=== PATIENT | male | born 1955 | race Caucasian/White ===

== ENCOUNTER 2022-12-03 07:28 | Outpatient (CLI) | payer MEDICARE, SELFPAY ==
[2022-12-03 10:09] LABS: Albumin* 3.9 g/dL (3.3-5.0); Chloride* 107 mmol/L (96-114); Potassium* 4.2 mmol/L (3.6-5.1); Sodium* 139 mmol/L (135-149)
[2022-12-03 10:11] LABS: Carbon Dioxide* 25 mmol/L (20-32); Cholesterol* 93 mg/dL (90-199); Creatinine* 0.7 mg/dL (0.5-1.5); Estimated Glomerular Filt Rate 102 ml/min
[2022-12-03 10:12] LABS: Alanine Aminotransferase* 26 U/L (4-50); Alkaline Phosphatase* 90 U/L (40-150); Aspartate Amino Transferase* 23 U/L (12-35); Bilirubin Total* 0.9 mg/dL (0.1-1.5); Blood Urea Nitrogen* 12 mg/dL (7-30); Glucose* 145 mg/dL (60-115); HDL Cholesterol* 30 mg/dL (>=40); LDL Cholesterol Calculated 50 mg/dL (<100); Total Protein* 6.3 g/dL (6.0-8.3); Triglycerides* 66 mg/dL (40-149)
[2022-12-03 11:58] LABS: Creatinine Urine 159.7 mg/dL
[2022-12-03 12:02] LABS: Microalbumin Creatinine Ratio 0 mg/g (0-30); Microalbumin Urine 1 mg/dL
== END 2022-12-03 07:29 | disposition home or self-care (01) ==
LOC: NFLDREF 07:28
PROVIDERS: PCP Internal Medicine; Visit Provider Internal Medicine
DX: E11.9 Type 2 diabetes mellitus without complications (principal); I10 Essential (primary) hypertension; E78.5 Hyperlipidemia, unspecified; E66.9 Obesity, unspecified; I48.91 Unspecified atrial fibrillation
CPT/HCPCS: 80053; 80061; 82043; 82570

== ENCOUNTER 2023-07-30 10:36 | Outpatient (CLI) | payer MEDICARE, SELFPAY ==
--- NOTE | 2023-07-30 11:50 | W.ANESCHARGE ---
Anesthesia Charges Start Date/Time Anesthesia Start Date: 07/30/23 Anesthesia Start Time: 11:50 Stop Date/Time Anesthesia Stop Date: 07/30/23 Anesthesia Stop Time: 12:29
--- NOTE | 2023-07-30 12:22 | W.ANESCHARGE ---
Anesthesia Charges Start Date/Time Anesthesia Start Date: 07/30/23 Anesthesia Start Time: 11:50 Stop Date/Time Anesthesia Stop Date: 07/30/23 Anesthesia Stop Time: 12:29
== END 2023-07-30 10:37 | disposition home or self-care (01) ==
LOC: OP CLINIC 10:37
PROVIDERS: PCP Internal Medicine; Visit Provider Surgery
DX: Z12.11 Encounter for screening for malignant neoplasm of colon (principal); K64.4 Residual hemorrhoidal skin tags; K57.30 Diverticulosis of large intestine without perforation or abscess without bleeding; Z86.010 Personal history of colon polyps
CPT/HCPCS: 00812; 45378; J2704

== ENCOUNTER 2023-08-30 07:30 | Outpatient (CLI) | payer MEDICARE, SELFPAY | END 2023-08-30 07:31 | disposition home or self-care (01) | LOC: NFLDREF 09-03 23:01 | PROVIDERS: PCP Internal Medicine; Referring Provider Internal Medicine; Visit Provider Internal Medicine | DX: E11.9 Type 2 diabetes mellitus without complications (principal); I10 Essential (primary) hypertension; E78.5 Hyperlipidemia, unspecified; E66.9 Obesity, unspecified; Z12.5 Encounter for screening for malignant neoplasm of prostate | CPT/HCPCS: 80053; 80061; 82043; 82570; 84153 ==

== ENCOUNTER 2023-11-11 06:58 | Outpatient (CLI) | payer MEDICARE, SELFPAY ==
--- OUTSIDE RECORDS SUMMARY | 2023-11-11 07:03 | XMS_ITS | Encounter Summary ---
Author Name Unknown Organization [facility] Address [address] [place] [address] Care Team Providers Care Soap Boiler Name Role Phone Unavailable Primary Care Provider Unavailabl e Reason for Referral * Outpatient (Routine) - Closed Specialty Diagnoses / Procedures Referred By Contac t Referred To Contact Diagnoses Hyperlipidemia Diabetes Mellitus Type 2 (HCC) Procedures Echo Transthoracic (TTE) Tone Lawson M.D. [address] [place] [address] [facility] Referral ID Status Reason Start Date Expiration Date Visits Re quested Visits Authorized [id number] Closed 11/17/2021 11/17/2022 1 1 ING CLERK Reason for Visit * Outpatient (Routine) - Closed Specialty Diagnoses / Procedures Referred By Mati perales Referred To Contact Diagnoses Hyperlipidemia Diabetes Mellitus Type 2 (HCC) Procedures Echo Transthoracic (TTE) Tone Lawson M.D. [address] [place] [address] [facility] Referral ID Status Reason Start Date Expiration Date Visits Re quested Visits Authorized [id number] Closed 11/17/2021 11/17/2022 1 1 Encounter Details Date Type Department Care Team (Latest Contact Info) Description 12/26/2022 9:42 AM ROUTING CLERK - 12/26/2022 11:59 PM ROUTING CLERK Hospital Encounter Department of Cardiovascular Diseases in [place], [place] [address] [place] [phone] [place] [address] Hyperlipidemia; Diabetes Mellitus Type 2 (HCC) Discharge Disposition: Home or Self Care Social History Tobacco Use Types Packs/Day Years Used Date Smoking Tobacco: Never Smokeless Tobacco: Never Alcohol Use Standard Drinks/Week Comments Not Currently 0 (1 standard drink = 0.6 oz pur e alcohol) Humiliation, Afraid, Rape, and Kick questionnair e Answer Date Recorded Within the last year, have y ou been afraid of your partner or ex-partner? No 11/17/2021 Within the last year, have y ou been humiliated or emotionally abused in other ways by your partner or ex-partner? No Within the last year, have y ou been kicked, hit, slapped, or otherwise physically hurt by your partner or ex-partner? No 11/17/2021 Within the last year, have y ou been raped or forced to have any kind of sexual activity by your partner or ex-partner? No 11/17/2021 Social Connection and Isolat ion Panel [NHANES] Answer Date Recorded In a typical week, how many times do you talk on the phone with family, friends, or neighbors? More than three times a week 11/17/2021 How often do you get togethe r with friends or relatives? Three times a week 11/17/2021 How often do you attend [facility] or uatsdin services? Never 11/17/2021 Do you belong to any clubs o r organizations such as rastafari groups, unions, fraternal or athletic groups, or school groups? No 11/17/2021 How often do you attend meet ings of the clubs or organizations you belong to? Never 11/17/2021 Are you , , di vorced, , never , or living with a partner? Never 11/17/2021 AUDIT-C Answer Date Recorded Q1: How often do you have a drink containing alc ohol? Never 11/17/2021 Average Number of Drinks Not on file 022 Frequency of Binge Drinking Not on file 10/22 Overall Financial Resource Strain (CARDIA) Answe r Date Recorded How hard is it for you to pa y for the very basics like food, housing, medical care, and heating? Not hard at all 11/17/2021 [facility] [place] of Occupat ional Health - Occupational Stress Questionnaire Answer Date Recorded Do you feel stress - tense, restless, nervous, or anxious, or unable to sleep at night because your mind is troubled all the time - these days? Not at all 11/17/2021 Exercise Vital Sign Answer Date Recorde d On average, how many days pe r week do you engage in moderate to strenuous exercise (like a brisk walk)? 0 days 11/17/2021 On average, how many minutes do you engage in exercise at this level? 0 min 11/17/2021 Hunger Vital Sign Answer Date Recorded Within the past 12 months, y ou worried that your food would run out before you got the money to buy more. Never true 11/17/19 Within the past 12 months, t he food you bought just didn't last and you didn't have money to get more. Never true 11/17/2021 PRAPARE - Transportation Answer Date Re corded In the past 12 months, has l ack of transportation kept you from medical appointments or from getting medications? No 10/22 In the past 12 months, has l ack of transportation kept you from meetings, work, or from getting things needed for daily living? No 11/17/2021 Housing Stability Vital Sign Answer Jayesh e Recorded In the last 12 months, was t here a time when you were not able to pay the mortgage or rent on time? No 11/17/2021 In the last 12 months, how many places have you lived? 1 11/17/2021 In the last 12 months, was t here a time when you did not have a steady place to sleep or slept in a prison (including now)? No 11/17/2021 Nutrition Answer Date Recorded Nutrition: EVOO Fat Source No 11/17 On average, how many serving s of fruits and vegetables do you eat per day (serving size is equal to 1 cup or approximately the size of a tennis ball)? 0-1 11/17/2021 Dental Answer Date Recorded Dental: Regular Dentist Yes 11/17/19 Employment Answer Date Recorded Employment status Retired 11/17/2021 Education Answer Date Recorded What is the highest level of school you have completed or the highest degree you have received? Bachelor's degree (e.g., BA, AB, BS) 08/24/2019 Sex and Gender Information Value Date Recorded Sex Assigned at Male 11/17/2021 12:19 PM ROUTING CLERK Gender Identity Male 11/17/2021 12:19 PM ROUTING CLERK Sexual Orientation Straight 11/17/2021 12 :19 PM ROUTING CLERK documented as of this encounter Medications at Time of Discharge Medication Sig Dispensed Refills Start Date End Date Accu-Chek Fastclix Lancet Drum use for testing 0 11/01/2021 Accu-Chek Guide test strips strips TEST TWICE DAILY NEEDED 0 11/02/2021 glipiZIDE (GLUCOTROL) 10 mg tablet 0 metFORMIN (GLUCOPHAGE) 1,000 mg tablet Take 1,000 mg by mouth 2 (two) times a day with meals. 0 metoprolol tartrate (LOPRESSOR) 25 mg tablet Take 25 mg by mouth 2 (two) times a day. 0 nitroglycerin (NITROSTAT) 0.[address] 0.3 mg under the tongue every 5 (five) minutes as needed for chest pain. 0 rivaroxaban (XARELTO) 20 mg tablet Take 20 mg by mouth daily. 0 semaglutide (RYBELSUS) 14 mg tablet tablet Take 14 mg by mouth daily. 0 12/05/2022 valsartan (DIOVAN) 160 mg tablet Take 160 mg by mouth daily. 0 06/14/2022 atorvastatin (LIPITOR) 80 mg tablet Take 80 mg by mouth daily. 0 12/27/2022 valsartan-hydroCHLOROthi azide (DIOVAN-HCT) 160-12.5 mg per tablet 0 10/07/202112/27 documented as of this encounter Plan of Treatment Not on file documented as of this encounter Procedures Procedure Name Priority Date/Time Associated Diagnosis Comments (TTE) 2D ECHO DOPPLER COLOR Routine 12/26/2022 10:33 AM ROUTING CLERK Hyperlipidemia Diabetes Mellitus Type 2 (HCC) documented in this encounter Results * (TTE) 2D ECHO DOPPLER COLOR (12/26/2022 10:33 AM ROUTING CLERK) Ejection Fraction 65 MC CV EIMS Sinus of Valsalva 38 MC CV EIMS Sinotubular Junction 29 MC CV EIMS LV End-Diastolic Diameter 53 MC CV EIMS LV End-Systolic Diameter 33 MC CV EIMS LV End-Diastolic Volume 95 MC CV EIMS LV End-Systolic Volume 31 MC CV EIMS MV E Velocity 0.6 MC CV EIMS MV A Velocity 0.7 MC CV EIMS MV E/A 0.86 MC CV EIMS MV e' Velocity Medial 0.08 MC CV EIMS MV e' Velocity Lateral 0.1 MC CV EIMS MV E/e' Medial 7.5 MC CV EIMS MV E/e' Lateral 6 MC CV EIMS Left ventricular stroke volume index 48 MC CV EIMS Cardiac Output 6.77 MC CV EIMS Cardiac Index 3.25 MC CV EIMS Tricuspid Annular S? 0.17 MC CV EIMS TR Vmax 2.5 MC CV EIMS RA Pressure 5 MC CV EIMS RV Systolic Pressure 30 MC CV EIMS Anatomical Region Laterality Modality Echocardiography 12/26/2022 9:46 AM ROUTING CLERK Impressions 12/26/2022 10:37 AM ROUTING CLERK Echocardiogram performed per left ventricular function protocol. Last full echocardiogram performed 11/16/2021. LEFT VENTRICLE:Normal left ventricular chamber size. Calculated 2-D linear left ventricular ejection fraction 65%. Left ventricular volumes were performed but not reported based on channeler's judgment. No regional wall motion abnormalities. Normal left ventricular diastolic function. RIGHT VENTRICLE:Normal right ventricular chamber size. Normal right ventricular function. Estimated right ventricular systolic pressure 30 mmHg (systolic blood pressure 156 mmHg). ATRIA:Normal left atrial size. Normal right atrial size. CARDIAC VALVES:Mildly thickened aortic valve. Trivial aortic valve regurgitation. Normal mitral valve. Trivial mitral valve regurgitation. Trivial pulmonary valve regurgitation. Normal tricuspid valve. Trivial tricuspid valve regurgitation. OTHER ECHO FINDINGS:Normal inferior vena cava size with normal inspiratory collapse (>50%). Normal sinus of Valsalva diameter of 38 mm. Upper limit of normal of the sinus of Valsalva for age, sex and BSA is 42 mm. No intracardiac mass or thrombus, but the left atrial appendage cannot be visualized adequately with transthoracic echo to exclude thrombus in this location. No ??pericardial effusion. For the complete report, see the Order-Level Documents. Narrative 12/26/2022 10:37 AM ROUTING CLERK For the complete report, see the Order-Level Documents. Hemodynamics Heart Rate: 66 BPM Blood Pressure: 156 / 92 mmHg ECG: Sinus rhythm Final Impressions 1. Normal left ventricular chamber size. Calculated ejection fraction 65%. No regional wall motion abnormalities. 2. Normal left ventricular diastolic function. 3. Normal right ventricular chamber size and systolic function. 4. Estimated right ventricular systolic pressure 30 mmHg (systolic blood pressure 156 mmHg). Could be underestimated due to faint tricuspid regurgitant signal. 5. No ??significant valvular heart disease. 6. Normal inferior vena cava size with normal inspiratory collapse (>50%). 7. No ??pericardial effusion. 8. Compared to the report of 11/16/2021 no significant change has occurred. Side by side comparison of images performed. Procedure Note Nella Domingo M.D. - 12/26/2022 For the complete report, see the Order-Level Documents. Hemodynamics Heart Rate: 66 BPM Blood Pressure: 156 / 92 mmHg ECG: Sinus rhythm Final Impressions 1. Normal left ventricular chamber size. Calculated ejection fraction 65%.No regional wall motion abnormalities. 2. Normal left ventricular diastolic function. 3. Normal right ventricular chamber size and systolic function. 4. Estimated right ventricular systolic pressure 30 mmHg (systolic bloodpressure 156 mmHg). Could be underestimated due to faint tricuspidregurgitant signal. 5. No significant valvular heart disease. 6. Normal inferior vena cava size with normal inspiratory collapse(>50%). 7. No pericardial effusion. 8. Compared to the report of 11/16/2021 no significant change hasoccurred. Side by side comparison of images performed. Findings Echocardiogram performed per left ventricular function protocol. Last fullechocardiogram performed 11/16/2021. LEFT VENTRICLE:Normal left ventricular chamber size. Calculated 2-D linearleft ventricular ejection fraction 65%. Left ventricular volumes wereperformed but not reported based on channeler's judgment. No regionalwall motion abnormalities. Normal left ventricular diastolic function. RIGHT VENTRICLE:Normal right ventricular chamber size. Normal rightventricular function. Estimated right ventricular systolic pressure 30mmHg (systolic blood pressure 156 mmHg). ATRIA:Normal left atrial size. Normal right atrial size. CARDIAC VALVES:Mildly thickened aortic valve. Trivial aortic valveregurgitation. Normal mitral valve. Trivial mitral valve regurgitation.Trivial pulmonary valve regurgitation. Normal tricuspid valve. Trivialtricuspid valve regurgitation. OTHER ECHO FINDINGS:Normal inferior vena cava size with normal inspiratorycollapse (>50%). Normal sinus of Valsalva diameter of 38 mm. Upper limitof normal of the sinus of Valsalva for age, sex and BSA is 42 mm. Nointracardiac mass or thrombus, but the left atrial appendage cannot bevisualized adequately with transthoracic echo to exclude thrombus in thislocation. No pericardial effusion. For the complete report, see the Order-Level Documents. Tone Lawson M.D. CV ECHO PROCEDURES documented in this encounter Visit Diagnoses Diagnosis Hyperlipidemia Diabetes Mellitus Type 2 (HCC) documented in this encounter
--- OUTSIDE RECORDS SUMMARY | 2023-11-11 07:03 | XMS_ITS | Encounter Summary ---
Author Name Unknown Organization [facility] Address [address] [place] [address] Care Team Providers Care Enamel Applier Name Role Phone Unavailable Primary Care Provider Unavailabl e Encounter Details Date Type Department Care Team (Latest Contact Info) Description 12/26/2022 8:33 AM SENIOR TECHNICAL PROJECT MANAGER - 12/26/2022 9:41 AM [facility] Hospital Encounter Department of Laboratory Medicine and Pathology, [facility] in [place], [place] [address] [place] [address] Tone Lawson M.D. [address] [place] [address] Hyperlipidemia; Diabetes Mellitus Type 2 (HCC) Discharge [...] week 11/17/2021 How often do you attend chur ch or baptist services? Never 11/17/2021 Do you belong to any clubs o r organizations such as buddhist groups, unions, fraternal or athletic groups, or [...] and heating? Not hard at all 11/17/2021 [facility] of Occupat ional Health - Occupational Stress [...] money to buy more. Never true 11/17/19 22 Within the past 12 months, t he [...] place to sleep or slept in a fci (including now)? No 11/17/2021 Nutrition Answer Date [...] Sex Assigned at Male 11/17/2021 12:19 PM SENIOR TECHNICAL PROJECT MANAGER Gender Identity Male 11/17/2021 12:19 PM SENIOR TECHNICAL PROJECT MANAGER Sexual Orientation Straight 11/17/2021 12 :19 PM SENIOR TECHNICAL PROJECT MANAGER documented as of this encounter Medications at [...] Procedure Name Priority Date/Time Associated Diagnosis Comments LIPID PANEL, S Routine 12/26/2022 8:40 AM SENIOR TECHNICAL PROJECT MANAGER Hyperlipidemia Diabetes Mellitus Type 2 (HCC) CBC WITH DIFFERENTIAL, B Routine 12/26/2022 8:40 AM SENIOR TECHNICAL PROJECT MANAGER Hyperlipidemia Diabetes Mellitus Type 2 (HCC) BUN (BLOOD UREA NITROGEN), S/P Routine 12/26/2022 8:40 AM SENIOR TECHNICAL PROJECT MANAGER Hyperlipidemia Diabetes Mellitus Type 2 (HCC) SODIUM, S/P Routine 12/26/2022 8:40 AM SENIOR TECHNICAL PROJECT MANAGER Hyperlipidemia Diabetes Mellitus Type 2 (HCC) POTASSIUM, S/P Routine 12/26/2022 8:40 AM SENIOR TECHNICAL PROJECT MANAGER Hyperlipidemia Diabetes Mellitus Type 2 (HCC) HEMOGLOBIN A1C, B Routine 12/26/2022 8:4 0 AM SENIOR TECHNICAL PROJECT MANAGER Hyperlipidemia Diabetes Mellitus Type 2 (HCC) GLUCOSE, FASTING, S/P Routine 12/26/2022 8:40 AM SENIOR TECHNICAL PROJECT MANAGER Hyperlipidemia Diabetes Mellitus Type 2 (HCC) CREATININE WITH EGFR, S/P Routine 12/26/2022 8:40 AM SENIOR TECHNICAL PROJECT MANAGER Hyperlipidemia Diabetes Mellitus Type 2 (HCC) CHLORIDE, S/P Routine 12/26/2022 8:40 AM SENIOR TECHNICAL PROJECT MANAGER Hyperlipidemia Diabetes Mellitus Type 2 (HCC) documented in this encounter Results * BUN (Blood Urea Nitrogen) (12/26/2022 8:40 AM SENIOR TECHNICAL PROJECT MANAGER) Pathologist [facility] BUN (Blood Urea Nitrogen), S 10 8 - 24 mg/dL 12/26/2022 9:45 AM SENIOR TECHNICAL PROJECT MANAGER DTL Blood (Blood, Venous) 12/26/2022 8:40 AM SENIOR TECHNICAL PROJECT MANAGER 12/26/2022 9:22 AM SENIOR TECHNICAL PROJECT MANAGER Tone Lawson M.D. LAB BLOOD ADD-ON [facility] [address] [place] [address], [facility] [address] [place] [address] * (ABNORMAL) CBC with Differential, Blood (12/26/2022 8:40 AM SENIOR TECHNICAL PROJECT MANAGER) Pathologist [facility] Hemoglobin 15.5 13.2 - 16.6 g/dL 12/26/2022 9:35 AM SENIOR TECHNICAL PROJECT MANAGER DTL Hematocrit 47.1 38.3 - 48.6 % 12/26/2022 9:35 AM SENIOR TECHNICAL PROJECT MANAGER DTL Erythrocytes 5.14 4.35 - 5.65 x10(12)/L 12/26/2022 9:35 AM SENIOR TECHNICAL PROJECT MANAGER DTL MCV 91.6 78.2 - 97.9 fL 12/26/2022 9:35 AM SENIOR TECHNICAL PROJECT MANAGER DTL RBC Distrib Width 13.0 11.8 - 14.5 % 12/26/2022 9:35 AM SENIOR TECHNICAL PROJECT MANAGER DTL Platelet Count 287 135 - 317 x10(9)/L 12/26/2022 9:35 AM SENIOR TECHNICAL PROJECT MANAGER DTL Leukocytes 9.8(H) 3.4 - 9.6 x10(9)/L 12/26/2022 9:35 AM SENIOR TECHNICAL PROJECT MANAGER DTL Neutrophils 6.85(H) 1.56 - 6.45 x10(9)/L 12/26/2022 9:35 AM SENIOR TECHNICAL PROJECT MANAGER DTL Lymphocytes 2.14 0.95 - 3.07 x10(9)/L 12/26/2022 9:35 AM SENIOR TECHNICAL PROJECT MANAGER DTL Monocytes 0.53 0.26 - 0.81 x10(9)/L 12/26/2022 9:35 AM SENIOR TECHNICAL PROJECT MANAGER DTL Eosinophils 0.21 0.03 - 0.48 x10(9)/L 12/26/2022 9:35 AM SENIOR TECHNICAL PROJECT MANAGER DTL Basophils 0.04 0.01 - 0.08 x10(9)/L 12/26/2022 9:35 AM SENIOR TECHNICAL PROJECT MANAGER DTL Blood (Blood, Venous) 12/26/2022 8:40 AM SENIOR TECHNICAL PROJECT MANAGER 12/26/2022 9:04 AM SENIOR TECHNICAL PROJECT MANAGER Tone Lawson M.D. LAB BLOOD ADD-ON Performing Organization Address City/[facility]/ZIP Co de Phone Number [facility] [address] [place] [address], [facility] [address] [address] * Chloride (12/26/2022 8:40 AM SENIOR TECHNICAL PROJECT MANAGER) Chloride, S 106 98 - 107 mmol/L 12/26/2022 9:45 AM SENIOR TECHNICAL PROJECT MANAGER DTL Blood (Blood, Venous) 12/26/2022 8:40 AM SENIOR TECHNICAL PROJECT MANAGER 12/26/2022 9:22 AM SENIOR TECHNICAL PROJECT MANAGER Tone Lawson M.D. LAB BLOOD ADD-ON Performing Organization Address City/[facility] Co de Phone Number [facility] [address] [place] [address], [facility] [place] [address] * Creatinine with Estimated GFR (12/26/2022 8:40 AM SENIOR TECHNICAL PROJECT MANAGER) Creatinine 0.88 0.74 - 1.35 mg/dL 12/26/2022 9:45 AM SENIOR TECHNICAL PROJECT MANAGER DTL Estimated GFR (eGFR) >90 >=60 mL/min/BSA 12/26/2022 9:45 AM SENIOR TECHNICAL PROJECT MANAGER DTL Comment: Estimated GFR calculated using the 2020 CKD_EPI creatinine equation. Blood (Blood, Venous) 12/26/2022 8:40 AM SENIOR TECHNICAL PROJECT MANAGER 12/26/2022 9:22 AM SENIOR TECHNICAL PROJECT MANAGER Narrative Authorizing Provider Result Prema Lawson M.D. LAB BLOOD ADD-ON Performing Organization Address City/[facility]/ZIP Co de Phone Number [facility] [address] [place] [address], [facility] [address] [place] [address] * (ABNORMAL) Glucose, Fasting (12/26/2022 8:40 AM SENIOR TECHNICAL PROJECT MANAGER) Pathologist [facility] Glucose, P 144(H) 70 - 100 mg/dL 12/26/2022 9:38 AM SENIOR TECHNICAL PROJECT MANAGER DTL Last Intake 8 hr 12/26/2022 9:22 AM SENIOR TECHNICAL PROJECT MANAGER DTL Blood (Blood, Venous) 12/26/2022 8:40 AM SENIOR TECHNICAL PROJECT MANAGER 12/26/2022 9:22 AM SENIOR TECHNICAL PROJECT MANAGER Tone Lawson M.D. LAB BLOOD NON ADD-ON Performing Organization Address [facility] Co de Phone Number [facility] [address] [place] [address], [facility] [address] [place] [address] * (ABNORMAL) Hemoglobin A1c (12/26/2022 8:40 AM SENIOR TECHNICAL PROJECT MANAGER) Pathologist [facility] Hemoglobin A1c, B 8.3(H) 4.0 - 5.6 % 12/26/2022 10:42 AM SENIOR TECHNICAL PROJECT MANAGER DTL Comment: Hemoglobin A1c values greater than or equal to 6.5 percent are diagnostic for diabetes mellitus. ??Diagnosis should be confirmed by repeat testing. ??In diabetic patients, HbA1c goals should be discussed with healthcare provider. Blood (Blood, Venous) 12/26/2022 8:40 AM SENIOR TECHNICAL PROJECT MANAGER 12/26/2022 9:04 AM SENIOR TECHNICAL PROJECT MANAGER Narrative Authorizing Provider Result Prema Lawson M.D. LAB BLOOD ADD-ON Performing Organization Address City/[facility] Co de Phone Number [facility] [address] [place] [address], [facility] [address] [place] [address] * (ABNORMAL) Lipid Panel (12/26/2022 8:40 AM SENIOR TECHNICAL PROJECT MANAGER) Triglycerides 61 mg/dL 12/26/2022 9:45 AM SENIOR TECHNICAL PROJECT MANAGER DTL Comment: ----REFERENCE VALUE---- Normal: <150 mg/dL Borderline High: 150-199 mg/dL High: 200-499 mg/dL Very High: > or =500 mg/dL Cholesterol, Total 78 mg/dL 2022 9:45 AM SENIOR TECHNICAL PROJECT MANAGER DTL Comment: ----REFERENCE VALUE---- Desirable: < 200 mg/dL Borderline High: 200 - 239 mg/dL High: > or = 240 mg/dL Cholesterol, LDL, Calculated 36 mg/dL 12/26/2022 9:45 AM SENIOR TECHNICAL PROJECT MANAGER DTL Comment: ----REFERENCE VALUE---- Desirable: <100 mg/dL Above Desirable: 100-129 mg/dL Borderline High: 130-159 mg/dL High: 160-189 mg/dL Very High: >=190 mg/dL ----ADDITIONAL INFORMATION---- LDL cholesterol calculated using the Shahid/NIH equation. Cholesterol, HDL, S 28(L) >=40 mg/dL 12/26/2022 9:45 AM SENIOR TECHNICAL PROJECT MANAGER DTL Cholesterol, Non-HDL, Calculated 50 mg/dL 12/26/2022 9:45 AM SENIOR TECHNICAL PROJECT MANAGER DTL Comment: ----REFERENCE VALUE---- Desirable: <130 mg/dL Above Desirable: 130-159 mg/dL Borderline High: 160-189 mg/dL High: 190-219 mg/dL Very High: > or =220 mg/dL Fasting (8 HR or more) 17:30 12/26/2022 9:22 AM SENIOR TECHNICAL PROJECT MANAGER DTL Blood (Blood, Venous) 12/26/2022 8:40 AM SENIOR TECHNICAL PROJECT MANAGER 12/26/2022 9:22 AM SENIOR TECHNICAL PROJECT MANAGER Tone Lawson M.D. LAB BLOOD ADD-ON [facility] [address] [place] [address], [place] DTL [facility] [address] [place] [address] * Potassium (12/26/2022 8:40 AM SENIOR TECHNICAL PROJECT MANAGER) Potassium, S 4.5 3.6 - 5.2 mmol/L 12/26/2022 9:45 AM SENIOR TECHNICAL PROJECT MANAGER DTL Blood (Blood, Venous) 12/26/2022 8:40 AM SENIOR TECHNICAL PROJECT MANAGER 12/26/2022 9:22 AM SENIOR TECHNICAL PROJECT MANAGER Tone Lawson M.D. LAB BLOOD ADD-ON [facility] [address] [place] [address], [facility] [address] [place] [address] * Sodium (12/26/2022 8:40 AM SENIOR TECHNICAL PROJECT MANAGER) Sodium, S 143 135 - 145 mmol/L 12/26/2022 9:45 AM SENIOR TECHNICAL PROJECT MANAGER DTL Blood (Blood, Venous) 12/26/2022 8:40 AM SENIOR TECHNICAL PROJECT MANAGER 12/26/2022 9:22 AM SENIOR TECHNICAL PROJECT MANAGER Tone Lawson M.D. LAB BLOOD ADD-ON [facility] [address] [place] [address], [facility] [address] [place] [address] documented in this encounter Visit Diagnoses Diagnosis Hyperlipidemia Diabetes Mellitus Type 2 (HCC) documented in this encounter
--- OUTSIDE RECORDS SUMMARY | 2023-11-11 07:03 | XMS_ITS | Encounter Summary ---
Author Name Unknown Organization [facility] Address [address] [place] [address] Care Team Providers Care Ventilation Equipment Tender Name Role Phone Unavailable Primary Care Provider Unavailabl e Reason for Visit * Reason Onset Date Comments BP update; RX request to other pharmacy 01/17/20 Encounter Details Date Type Department Care Team (Latest Contact Info) Description 01/16/2023 Clinical Communication Department of Cardiovascular Medicine in [place], [place] [address] [place] [address] Tone Lawson M.D. [address] [place] [address] BP update; RX request to other pharmacy Social History Tobacco Use Types Packs/Day Years [...] often do you attend chur ch or caodaism services? Never 11/17/2021 Do you belong to any clubs o r organizations such as amish groups, unions, fraternal or athletic groups, or [...] and heating? Not hard at all 11/17/2021 [facility] Occupat ional Health - Occupational Stress [...] place to sleep or slept in a care home (including now)? No 11/17/2021 Nutrition Answer Date [...] Sex Assigned at Male 11/17/2021 12:19 PM COMMUNICATION COORDINATOR Gender Identity Male 11/17/2021 12:19 PM COMMUNICATION COORDINATOR Sexual Orientation Straight 11/17/2021 12 :19 PM COMMUNICATION COORDINATOR documented as of this encounter Miscellaneous Notes * Telephone Encounter - Zuri Mayer RJuan Antonio - 01/16/2023 11:12 AM CDT PLAN The following information was provided: RN called patient, Carlos Power to let him know about the dose increase and that a new rx has been sent to [facility]. He will reach out if he has any issues with the dose increase. No furtherquestions. Information/Education: patient/caller able to teach back The following references were used: nursing clinical judgement and provider Dr. Lawson * Telephone Encounter - Cyndy Dixon - 01/16/2023 9:20 AM CDT SUBJECTIVE CHIEF COMPLAINT / REASON FOR CALL BP update; RX request to other pharmacy Contacts Type Contact Phone/Fax 01/16/2023 09:19 AM CDT Phone (Incoming) Carlos PowerTorsten (Self) [phone] (M) Patient expects communication via portal: No Valid authorization on file: Yes Medication Management Questions to be answered: Should pt continue on the amlodipine at current dose or increase? Medication/dose: Amlodipine 5 mg daily Recent change/new symptom/side effect: None Pharmacy clarification: NOTE: Please send new RX to [facility] by [employer] (not [facility] in [place]) Additional comments: Dr. Lawson saw the pt on 12-27 and initiated amlodipine 5 mg daily. We were to call the pt in 2 weeks to check on his blood pressure and decide if he needed to go up to 10 mg daily. Pt did not hear from us so is calling now to check on this. His blood pressure has averaged 122/78with the highest reading 128/83 and the lowest 115/76. Whatever decision is made on the dosage, thept is asking that the new RX be sent to [facility]. It initially was sent to his local pharmacy just so he could start taking it immediately but he gets all of his meds through [facility] and he is at the deadline required for them to send out his next packet so he is asking if someone could get this done as soon as possible so he doesn't run out. I am marking this as a high priority for that reason.He would like a call with our recommendations and to let him know the RX has been sent. I am happy to call him if that helps out. Thank you. documented in this encounter Plan of Treatment Not on file documented as of this encounter Visit Diagnoses Not on filedocumented in this encounter
--- OUTSIDE RECORDS SUMMARY | 2023-11-11 07:03 | XMS_ITS | Clinical Summary ---
Author Name Unknown Organization [facility] Address [address] [place] [address] Care Team Providers Care Railway Signal Electrician Name Role Phone Unavailable Primary Care Provider Unavailabl e Source Comments Patient records contain information from all sites at [facility]. For routine questions regarding patient records, call [phone] during business hours, M-F 8:00 AM - 5:00 PM Central Time. Record requests for emergency care only can be directed to [phone] at any time.[facility] Allergies No known active allergies Medications Medication Sig Dispensed Refills Start Date End Date Status metFORMIN (GLUCOPHAGE) 1,000 mg tablet Take 1,000 mg by mouth 2 (two) times a day with meals. 0 Active metoprolol tartrate (LOPRESSOR) 25 mg tablet Take 25 mg by mouth 2 (two) times a day. 0 Active nitroglycerin (NITROSTAT) 0.[address] 0.3 mg under the tongue every 5 (five) minutes as needed for chest pain. 0 Active rivaroxaban (XARELTO) 20 mg tablet Take 20 mg by mouth daily. 0 Active Accu-Chek Guide test strips strips TEST TWICE DAILY NEEDED 0 11/02/2021 Active glipiZIDE (GLUCOTROL) 10 mg tablet 0 Active Accu-Chek Fastclix Lancet Drum use for testing 0 11/01/2021 Active valsartan (DIOVAN) 160 mg tablet Take 160 mg by mouth daily. 0 06/14/2022 Active semaglutide (RYBELSUS) 14 mg tablet tablet Take 14 mg by mouth daily. 0 12/05/2022 Active atorvastatin (LIPITOR) 80 mg tablet Take 0.5 tablets (40 mg total) by mouth daily. 0 12/27/2022 Active atorvastatin (LIPITOR) 40 mg tablet Take 1 tablet (40 mg total) by mouth daily. 30 tablet 11 12/27/2022 Active amLODIPine (NORVASC) 10 mg tablet Take 1 tablet (10 mg total) by mouth daily. 90 tablet 3 01/16/2023 Active Active Problems Problem Noted Date Diagnosed Date Coronary Artery Disease Post Myocardial Infarcti on 06/11/2016 Hyperlipidemia 03/15/2016 Diabetes Mellitus Type 2 03/15/2016 Immunizations Name Administration Dates Next Due HZV (ZOSTAVAX) 08/10/2016 HepB Adult 07/05/2005 Influenza (IM) Preservative Free 08/03/2010,06/2009 Influenza Split 07/22/2017 Influenza high dose QV(65 ye ars or older) (PF) 08/31/2021 Influenza, Injectable, Quadrivalent 07/13/2015 Influenza, Seasonal, Injectable 08/04/2014,09/23,09/07/2005 PCV13 05/30/2021 PPSV23 05/28/2019 RZV (SHINGRIX) 11/28/2020,09/01/2020 Td (Adult), adsorbed 09/01/2020 Tdap 08/03/2010 influenza high dose (65 year s or older) (PF) 07/22/2017 influenza vaccine QV(FLUBLOK ) (18 years or older) (PF) 08/15/2020,08/04/2019 influenza vaccine quad (FLUZONE/FLUARIX) (6 months and older)(PF) 10/24/2018,08/19/2017,07/05/2016,2012 Family History Medical History Relation Name Comments Asthma Brother Efrem Sleep apnea Father Santy Lung cancer Father's Brother 1 Bassam Coronary artery disease Father's Brother 2 Roseland Dementia Father's Brother 3 Loyis Alcohol abuse Father's Brother 4 Partha Coronary artery disease Father's Sister 1 Martha Osteoporosis Father's Sister 2 Trish Thyroid disease Maternal Grandmother Liz Diabetes Mother Yadira Kidney disease Mother Yadira Sleep apnea Mother Yadira Coronary artery disease Paternal Grandfather Demetrius Clotting disorder Paternal Grandmother Laura Colon cancer Paternal Grandmother Laura Relation Name Status Comments Brother Efrem Father [place] Father's Brother 1 Bassam Father's Brother 2 Osman Father's Brother 3 Rolando Father's Brother 4 Partha Father's Sister 1 Martha Father's Sister 2 Trish Maternal Grandmother Liz Mother Yadira Paternal Grandfather Demetrius Paternal Grandmother Laura Social History Tobacco Use Types Packs/Day Years [...] week 11/17/2021 How often do you attend [facility] or restorationism services? Never 11/17/2021 Do you belong to any clubs o r organizations such as taoism groups, unions, fraternal or athletic groups, or [...] and heating? Not hard at all 11/17/2021 [facility] of Occupat ional Health - Occupational Stress [...] place to sleep or slept in a intermediate (including now)? No 11/17/2021 Nutrition Answer Date [...] Sex Assigned at Male 11/17/2021 12:19 PM CLINICAL PHARMACOLOGIST Gender Identity Male 11/17/2021 12:19 PM CLINICAL PHARMACOLOGIST Sexual Orientation Straight 11/17/2021 12 :19 PM CLINICAL PHARMACOLOGIST Last Filed Vital Signs Vital Sign Reading Time Taken Comments Blood Pressure 168/81 12/27/2022 2:47 PM CLINICAL PHARMACOLOGIST Pulse 80 12/27/2022 2:47 PM CLINICAL PHARMACOLOGIST Temperature - - Respiratory Rate 16 10/19/2016 12:0 3 PM CLINICAL PHARMACOLOGIST Vital sign result from Clinical Notes. Oxygen Saturation - - Inhaled Oxygen Concentration - - Weight 95.8 kg (211 lb 5 oz) 12/27/2022 2:47 PM CLINICAL PHARMACOLOGIST Height 171.2 cm (5' 7.4) 12/27/2022 2: 47 PM CLINICAL PHARMACOLOGIST Body Mass Index 32.7 12/27/2022 2:47 PM CLINICAL PHARMACOLOGIST Plan of Treatment Health Maintenance Due Date Last Done Comments CT Colonography 1955 Cologuard 1955 Diabetic Office Visit with F oot Exam 1955 Dilated Eye Exam 1955 Hepatitis C Screening 1955 Urine Albumin 1955 Hepatitis B Vaccines (2 of 3 - Risk 3-dose series) 08/02/2005 07/05/2005 Colonoscopy 10/22/2016 10/22/2011 (Perf ormed elsewhere) Colorectal Cancer Surveillance 10/22/2016 Hemoglobin A1C 03/28/2023 12/26/2022, 10/22, 12/27/2017, Additional history exists Office Visit for Blood Press ure Check / Re-check 03/29/2023 12/27/2022 Depression Screening (Annual PHQ-2) 10/21/2023 Fall Risk Screen (Annual) 10/21/2023 Creatinine Level (Kidney Fun ction Test) 12/27/2023 12/26/2022, 11/16/2021, 03/15/2016, Additional history exists Potassium Level 12/27/2023 12/26/2022, 10/22, 03/15/2016, Additional history exists Sodium Level 12/27/2023 12/26/2022, 10/22, 03/15/2016, Additional history exists Pneumococcal vaccine (65+ ye ars) (3 of 3 - PPSV23 or PCV20) 05/28/2024 05/30/2021, 05/28/2019 Lipid (Cholesterol) Screening 12/27/2027, 11/16/2021, 12/27/2017, Additional history exists DTaP,Tdap,and Td Vaccines (3 - Td or Tdap) 09/01/2030 09/01/2020, 08/03/2010 Zoster Vaccines Completed 11/28/2020, 08/21, 08/10/2016 COVID-19 Vaccine Completed 08/29/2023, , 03/14/2022, Additional history exists Influenza Vaccine Completed 09/02/2023, , 08/31/2021, Additional history exists Medical Devices Implanted Type Area Marketing Content Coordinator Device Identifier Shelf Expiration Date Model / Serial / Lot Premier 3.0 X 16 - [id number] Implanted:Qty: 1 on 03/14/2016 Cardiac Stent [place] [employer] Description:Device Manufactu rer - [employer]. Device Status Text - [id number].
--- OUTSIDE RECORDS SUMMARY | 2023-11-11 07:03 | XMS_ITS | Encounter Summary ---
Author Name Unknown Organization [facility] Address [address] [place] [address] Care Team Providers Care Senior Accountant Analyst Name Role Phone Unavailable Primary Care Provider Unavailabl e Reason for Visit * Reason Comments Med Refill Encounter Details Date Type Department Care Team (Late st Contact Info) Description 12/27/2022 Refill Department of Cardiovascular Medicine in [place], [place] [address] [place] [address] Tone Lawson M.D. [address] [place] [address] Med Refill Social History Tobacco Use Types Packs/Day Years [...] often do you attend chur ch or anabaptism services? Never 11/17/2021 Do you belong to any clubs o r organizations such as zoroastrianism groups, unions, fraternal or athletic groups, or [...] and heating? Not hard at all 11/17/2021 [facility] of Occupat ional Health - Occupational [...] place to sleep or slept in a detention (including now)? No 11/17/2021 Nutrition Answer Date [...] Assigned at Male 11/17/2021 12:19 PM SENIOR SOFTWARE MANAGER Gender Identity Male 11/17/2021 12:19 PM SENIOR SOFTWARE MANAGER Sexual Orientation Straight 11/17/2021 12 :19 PM SENIOR SOFTWARE MANAGER documented as of this encounter Plan of Treatment Not on file documented as of this encounter Visit Diagnoses Not on filedocumented in this encounter
--- OUTSIDE RECORDS SUMMARY | 2023-11-11 07:03 | XMS_ITS | Referral Summary ---
Author Name Unknown Organization [facility] Address [address] [place] [address] Care Team Providers Care County Extension Agent Name Role Phone Unavailable Primary Care Provider Unavailabl e Source Comments Patient records contain information from all sites at [facility]. For routine questions regarding patient records, call [phone] during business hours, M-F 8:00 AM - 5:00 PM Central Time. Record requests for emergency care only can be directed to [phone] at any time.[facility] Allergies No known active allergies Medications Medication [...] quad (FLUZONE/FLUARIX) (6 months and older)(PF) 10/24/2018,08/19/2017,07/05/2016,2012 Social History Tobacco Use Types Packs/Day Years [...] often do you attend chur ch or rastafarian services? Never 11/17/2021 Do you belong to any clubs o r organizations such as quaker groups, unions, fraternal or athletic groups, or [...] and heating? Not hard at all 11/17/2021 [facility] of Occupat ional Health - Occupational Stress [...] place to sleep or slept in a jail (including now)? No 11/17/2021 Nutrition Answer Date [...] Sex Assigned at Male 11/17/2021 12:19 PM FOOTBALL SCOUT Gender Identity Male 11/17/2021 12:19 PM FOOTBALL SCOUT Sexual Orientation Straight 11/17/2021 12 :19 PM FOOTBALL SCOUT Last Filed Vital Signs Vital Sign Reading Time Taken Comments Blood Pressure 168/81 12/27/2022 2:47 PM FOOTBALL SCOUT Pulse 80 12/27/2022 2:47 PM FOOTBALL SCOUT Temperature - - Respiratory Rate 16 10/19/2016 12:0 3 PM FOOTBALL SCOUT Vital sign result from Clinical Notes. Oxygen Saturation - - Inhaled Oxygen Concentration - - Weight 95.8 kg (211 lb 5 oz) 12/27/2022 2:47 PM FOOTBALL SCOUT Height 171.2 cm (5' 7.4) 12/27/2022 2: 47 PM FOOTBALL SCOUT Body Mass Index 32.7 12/27/2022 2:47 PM FOOTBALL SCOUT Plan of Treatment Not on file Medical Devices Implanted Type Area Concrete Buildings Assembler Device Identifier Shelf Expiration Date Model / Serial / Lot Premier 3.0 X 16 - [id number] Implanted:Qty: 1 on 03/14/2016 Cardiac Stent [place] [employer] Description:Device Manufactu rer - [employer]. Device Status Text - [id number].
--- OUTSIDE RECORDS SUMMARY | 2023-11-11 07:03 | XMS_ITS | Encounter Summary ---
Author Name Unknown Organization [facility] Address [address] [place] [address] Care Team Providers Care Motor Vehicle Representative Name Role Phone Unavailable Primary Care Provider Unavailabl e Reason for Referral * Outpatient (Routine) - Authorized Specialty Diagnoses / Procedures Referred By Mati perales Referred To Contact Diagnoses Hyperlipidemia Diabetes Mellitus Type 2 (HCC) Procedures ECG 12 Lead Tone Lawson M.D. 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 [address] [place] [address] [facility] Referral ID Status Reason Start Date Expiration Date V isits Requested Visits Authorized [id number] Authorized 12/27/2022 12/27/2023 1 1 MBLYMAN OR WOMAN * Outpatient (Routine) - Authorized Specialty Diagnoses / Procedures Referred By Contac t Referred To Contact Cardiovascular Disease Diagnoses Hyperlipidemia Diabetes Mellitus Type 2 (HCC) Tone Lawson M.D. [address] [place] [address] [facility] Referral ID Status Reason Start Date Expiration Date V isits Requested Visits Authorized [id number] Authorized 12/27/2022 12/26/2025 1 1 Scheduling Instructions [facility] Return visit in two years (2024) with testing beforehand--ideally as a one day visit with testing in the morning and return visit that afternoon MBLYMAN OR WOMAN Reason for Visit * Outpatient (Routine) - Closed Specialty Diagnoses / Procedures Referred By Mati t Referred To Contact Cardiovascular Disease Diagnoses Hyperlipidemia Diabetes Mellitus Type 2 (HCC) Tone Lawson M.D. [address] [place] [address] [facility] Referral ID Status Reason Start Date Expiration Date Visits Re quested Visits Authorized [id number] Closed 11/17/2021 11/17/2022 1 1 Encounter Details Date Type Department Care Team (Latest Contact Info) Description 12/27/2022 3:00 PM ASSEMBLYMAN OR WOMAN Office Visit Department of Cardiovascular Medicine in [place], [place] [address] [place] [address] Tone Lawson M.D. [address] [place] [phone] Hyperlipidemia; Diabetes Mellitus Type 2 (HCC); Atherosclerotic Heart Disease [place] Coronary Artery With Other Forms Angina Pectoris (Stable Angina/Angina Of Exertion) (HCC) Social History Tobacco Use Types Packs/Day Years [...] any clubs o r organizations such as cheondoism groups, unions, fraternal or athletic groups, or [...] and heating? Not hard at all 11/17/2021 [facility] of Occupat ional Health - [...] place to sleep or slept in a snf (including now)? No 11/17/2021 Nutrition Answer Date [...] Sex Assigned at Male 11/17/2021 12:19 PM ASSEMBLYMAN OR WOMAN Gender Identity Male 11/17/2021 12:19 PM ASSEMBLYMAN OR WOMAN Sexual Orientation Straight 11/17/2021 12 :19 PM ASSEMBLYMAN OR WOMAN documented as of this encounter Last Filed Vital Signs Vital Sign Reading Time Taken Comments Blood Pressure 168/81 12/27/2022 2:47 PM ASSEMBLYMAN OR WOMAN Pulse 80 12/27/2022 2:47 PM ASSEMBLYMAN OR WOMAN Temperature - - Respiratory Rate - - Oxygen Saturation - - Inhaled Oxygen Concentration - - Weight 95.8 kg (211 lb 5 oz) 12/27/2022 2:47 PM ASSEMBLYMAN OR WOMAN Height 171.2 cm (5' 7.4) 12/27/2022 2:47 PM ASSEMBLYMAN OR WOMAN Body Mass Index 32.7 12/27/2022 2:47 PM ASSEMBLYMAN OR WOMAN documented in this encounter Progress Notes * Tone Lawson M.D. - 12/27/2022 3:00 PM CST Heart Failure Clinic Note Referring Provider: Tone Lawson M.D. HISTORY OF PRESENT ILLNESS Mr. Carlos Power is a very pleasant 67 y.o. male It was a delight meeting with him this afternoon. He has had nothing to suggest angina. He is withdrawn from his thiazide diuretic as it complicated as glycemic management and with this has had a consistent increase in blood pressure. I reviewed with him his home log which is meticulous and shows blood pressures universally out of target. Beyond this he has nothing to suggest angina nor [place] criteria. He is also fortuitously managed to lose weight on his current GLP one. Interval lab data include an essentially unchanged transthoracic study with an ejection fraction of65% no significant valvular heart disease and a 12 lead ECG with normal sinus rhythm and no change compared to a study dated October of 2021. Other lab data include hemoglobin 15.5, hematocrit 47.1, potassium 4.5, creatinine 0.88, cholesterol 78, HDL 28, LDL 36 and triglycerides 61. REVIEW OF SYSTEMS Pertinent positives and negatives as documented in the above history of present illness. The following portions of the patient's history were reviewed and updated as appropriate: allergies, current medications, family history, medical history, social history and surgical history. OBJECTIVE BP (!) 168/81 (BP Location: Left arm, Patient Position: Sitting) Pulse 80 Ht 171.2 cm Wt 95.8kg BMI 32.70 kg/m?? Wt 95.8 kg Ht 171.2 cm Body mass index is 32.7 kg/m??. Body surface area is 2.13 meters squared. PHYSICAL EXAMINATION Physical Exam General: Alert, oriented, appropriate affect, no apparent distress. Skin: Warm and dry without any diaphoresis or cyanosis. Vessels: JVP carotids are brisk without bruit, neck veins are flat. Heart: Cardiac exam he has a quiet precordium with no murmur gallop or rub. Lungs: Lungs clear. Extremities: Bilateral there is no clubbing, cyanosis or edema. Neuro: Appropriate gait for age. DIAGNOSTICS I have reviewed the patient's current laboratory, imaging, and other diagnostic studies. Pertinent laboratory studies have been reviewed and are notable for: As noted above. Pertinent imaging studies have been reviewed and are notable for: As noted above. ASSESSMENT / PLAN I have suggested that he begin a dihydropyridine and have prescribed amlodipine 5 mg a day. We willcall in two weeks and gauge his blood pressure response and if he remains out of target I would increase at that point to 10 mg a day. I also suggest a drop in his atorvastatin dosage down to 40 mg aday. I would note we discussed his diet, which unfortunately does include significant exogenous sodium in the form of process food which I asked him to mitigate to a target of less than 9297-1490 mEqa day. I will see him back in follow-up in two years with testing beforehand but the interim we will discuss his hemodynamic control blood pressure management. I will send a copy of my note to his primary care provider Dr. Dahl as well. PATIENT EDUCATION The impression and plans were explained in detail. There were no apparent barriers to learning and understanding. Questions were answered. Tone Lawson M.D. 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) Expected: 12/27/2024, Expires: 03/29/2025 ECG 12 Lead ECG Routine Hyperlipidemia Diabetes Mellitus Type 2 (HCC) Expected: 12/27/2024 (Approximate), Expires: 03/29/2025 Sodium Lab Routine Hyperlipidemia Diabetes Mellitus Type 2 (HCC) Expected: 12/27/2024 (Approximate), Expires: 03/29/2025 Potassium Lab Routine Hyperlipidemia Diabetes Mellitus Type 2 (HCC) Expected: 12/27/2024 (Approximate), Expires: 03/29/2025 Lipid Panel Lab Routine Hyperlipidemia Diabetes Mellitus Type 2 (HCC) Expected: 12/27/2024 (Approximate), Expires: 03/29/2025 Creatinine with Estimated GFR Lab Routine Hyperlipidemia Diabetes Mellitus Type 2 (HCC) Expected: 12/27/2024 (Approximate), Expires: 03/29/2025 Chloride Lab Routine Hyperlipidemia Diabetes Mellitus Type 2 (HCC) Expected: 12/27/2024 (Approximate), Expires: 03/29/2025 CBC with Differential, Blood Lab Routine Hyperlipidemia Diabetes Mellitus Type 2 (HCC) Expected: 12/27/2024 (Approximate), Expires: 03/29/2025 BUN (Blood Urea Nitrogen) Lab Routine Hyperlipidemia Diabetes Mellitus Type 2 (HCC) Expected: 12/27/2024 (Approximate), Expires: 03/29/2025 AST (Aspartate Aminotransferase) Lab Routine Hyperlipidemia Diabetes Mellitus Type 2 (HCC) Expected: 12/27/2024 (Approximate), Expires: 03/29/2025 Scheduled Referrals Name Type Priority Associated Diagnoses Order Schedule Cardiovascular Disease office visit (clinic) HF Clinic Outpatient Referral Routine Hyperlipidemia Diabetes Mellitus Type 2 (HCC) Expected: 12/27/2024, Expires: 01/27/2025 documented as of this encounter Visit Diagnoses Diagnosis Hyperlipidemia Diabetes Mellitus Type 2 (HCC) Atherosclerotic Heart Disease [place] Coronary Artery With Other Forms Angina Pectoris (Stable Angina/Angina Of Exertion) (HCC) documented in this encounter
--- OUTSIDE RECORDS SUMMARY | 2023-11-11 07:03 | XMS_ITS ---
Author Name Unknown Organization [facility] Address [address] [place] [address] Care Team Providers Care Coil Maker Name Role Phone Unavailable Unavailable Unavailable Surgery Details Not on file Complications Check Surgery Details section. Procedure Estimated Blood Loss Check Surgery Details section. Procedure Findings Check Surgery Details section. Procedure Specimens Taken Check Surgery Details section.
--- OUTSIDE RECORDS SUMMARY | 2023-11-11 07:03 | XMS_ITS | Clinical Summary ---
Author Name Unknown Organization [facility] Address [place], [place] [address] Care Team Providers Care Paper Coater Name Role Phone Indu Dahl MD Primary Care Provider [phone] Allergies No known active allergies Medications Medication Sig Dispensed Refills Start Date End Date Status atorvastatin (LIPITOR) 80 mg tablet TK 1 T PO HS 0 10/29/2018 Active ACCU-CHEK GUIDE strip 0 01/11/2019 Act avani metFORMIN (GLUCOPHAGE) 1,000 mg tablet Twice Daily With Meals 0 02/13/2018 Active metoprolol tartrate (LOPRESSOR) 25 mg tablet Twice A Day 0 10/29/2018 Active nitroglycerin (NITROSTAT) 0.4 mg sublingual tablet Every 5 Minutes as needed 0 11/03/2018 Active XARELTO 20 mg tablet TK 1 T PO D WITH THE MARY MEAL 3 11/07/2018 Active Active Problems Problem Noted Date Diagnosed Date Unspecified adjustment reaction 08/24/2009 Social History Tobacco Use Types Packs/Day Years Used Date Smoking Tobacco: Never Smokeless Tobacco: Never Sex and Gender Information Value Date Recorded Sex Assigned at Not on file Gender Identity Not on file Sexual Orientation Not on file Obstetrics History Last Filed Vital Signs Vital Sign Reading Time Taken Comments Blood Pressure 159/93 01/12/2019 3:12 PM CDT Pulse 66 01/12/2019 3:12 PM CDT Temperature - - Respiratory Rate - - Oxygen Saturation 98% 01/12/2019 3:12 PM CDT Inhaled Oxygen Concentration - - Weight 106.8 kg (235 lb 6.4 oz) 01/12/2019 3:12 PM CDT Height - - Body Mass Index - - Plan of Treatment Health Maintenance Due Date Last Done Comments COVID-19 vaccine series (#1) 1956 Tdap 1967 Depression screening for age 12+ 1968 BMI (ht and wt on same day) for age 18+ 1974 Hepatitis C screening for age 18-79 1974 Tetanus booster 1976 Colonoscopy through age 75 2001 Zoster (shingles) series for age 50+ (1 of 2) 04/09/20 06 Lipids for age 45-75 09/30/2011 09/30/2006 Pneumococcal series for age 65+ (1 of 1 - PCV) 021 Influenza for age 65+ 06/21/2023 Care Teams Paper Coater Relationship Specialty Start Date End Date Inud Dhal MD [address] [place] [address] PCP - General Internal Medicine 01/12/19
--- NOTE | 2023-11-11 07:15 | MR_ITS ---
[address] [address] Phone:?[phone] Fax:?[phone] Referring Physician Information: Jad Pang M.D. [address] [place] [address] Phone:?[phone] Fax:?[phone] Patient:Abida Power D.O.B:?1955 Sex:?Male Phone:?[phone] [facility] MRN:?[id number] Exam Date:?11/11/2023 EXAM: MRI of the LEFT SHOULDER, without contrast CLINICAL INFORMATION: Male, 68 years old, with left shoulder pain. INDICATION: Evaluate for internal derangement. PRIOR SURGERY: None reported. PLAIN FILMS: None available. COMPARISONS: No prior MRIs available. TECHNICAL INFORMATION: Using a 1.5T MR scanner and a localizing surface coil: coronal obliques: PD, T2, STIR sagittal obliques: PD, T2 axials: PD, T2 SEDATION: None CONTRAST: None FINDINGS: Bones: Proximal humerus: No fracture or marrow edema/pathology. No humeral Hill-Sachs or reverse Hill-Sachs lesion/impaction or contusion. Glenoid: No fracture or marrow edema/pathology. No osseous Bankart lesion. Rotator cuff and muscles/tendons: Supraspinatus: Mild supraspinatus tendinopathy, with bursal surface fraying, but without discrete tear. Infraspinatus: No tendinopathy, tear or atrophy. Teres minor: No tendinopathy, tear or atrophy. Subscapularis: Mild tendinopathy of the superior distal subscapularis, without tendon tear or muscle atrophy. Deltoid: No strain or atrophy. Coracoacromial arch: Acromion morphology: The acromion has type II morphology. No discrete subacromial osseous spur or os acromiale. Acromiohumeral space: The acromiohumeral space is within normal limits. Coracohumeral space: The coracohumeral space is within normal limits. Acromioclavicular joint: Joint: Mild AC joint arthropathy with 3 mm of inferior osteophytosis that effaces the supraspinatus (coronal T2 series 6 image 9). Ligaments: Coracoclavicular ligaments are intact. Bursae: Subacromial-subdeltoid: Mild subacromial-subdeltoid bursal thickening/edema. Subcoracoid: No convincing subcoracoid bursal thickening/bursitis. Biceps tendon: The long head of the biceps tendon is present within the bicipital groove. The intra-articular and extra-articular segments are intact without tendinosis or split/tear. However, there is mild tenosynovitis (coronal STIR series 4 image 14). Glenohumeral joint: Effusion/cyst: No significant glenohumeral joint effusion. Articular cartilage: Humeral head: Mild to moderate thinning of the humeral head articular cartilage is present throughout the medial aspect of the humeral head, with minimal inferomedial marginal osteophytosis. Glenoid: Mild thinning of the glenoid articular cartilage, with mild anterior marginal osteophytosis. Loose bodies: No discrete intra-articular body within the joint. Labrum:?Intrasubstance degeneration and fraying is present throughout the superior labrum, without more well-defined labral tear (coronal PD series 5 images 11-15). Inferior glenohumeral ligament/axillary pouch:?Mild-moderate thickening of inferior capsuloligamentous structures (coronal PD series 5 images 12-18). Additionally, there is soft tissue thickening throughout the rotator interval (sagittal PD series 7 images 9-15). IMPRESSION: 1. Mild supraspinatus & subscapularis tendinopathy. No rotator cuff tendon tear. 2. Mild AC joint arthropathy with inferior osteophytosis that effaces the underlying supraspinatus. Additionally, there is mild subacromial-subdeltoid bursal inflammation. However, the acromiohumeral space is normal. 3. Mild osteoarthritis of the glenohumeral joint. 4. Findings in keeping with any clinical symptoms of adhesive capsulitis. 5. Mild biceps tenosynovitis, without tendinopathy or split/tear. 6. Intrasubstance degeneration and fraying of the superior labrum, which is of doubtful clinical significance. BC Electronically signed on 11/11/2023 10:54:00 AM by Yuan Hernandez M.D.
== END 2023-11-11 06:59 | disposition home or self-care (01) ==
LOC: MRI 07:01
PROVIDERS: PCP Internal Medicine; Visit Provider Orthopaedic Surgery
DX: M25.512 Pain in left shoulder (principal); M75.102 Unspecified rotator cuff tear or rupture of left shoulder, not specified as traumatic; M19.012 Primary osteoarthritis, left shoulder; M75.02 Adhesive capsulitis of left shoulder
CPT/HCPCS: 73221

== ENCOUNTER 2023-11-14 13:42 | Emergency (ER) | payer MEDICARE, SELFPAY ==
[2023-11-14] VITALS (24 sets, daily range): BP systolic 138–193; BP diastolic 77–101; PULSE 80–108; RESP 24; TEMP 37.2; O2SAT 93–98; BMI 33.9
--- NOTE | 2023-11-14 14:12 | CRLHL7_ITS ---
For Patients: As a result of the Century Cures Act, medical imaging exams and procedure reports are released immediately into your electronic medical record. You may view this report before your referring provider. If you have questions, please contact your health care provider. INDICATION: DIZZY, SHAKY, CONFUSED, ANXIOUS TECHNIQUE: Head CT without contrast. COMPARISON: MRI brain August 06, 2019 FINDINGS: CSF spaces: Within normal limits for age. Brain parenchyma and extra-axial spaces: There are mild nonspecific low attenuation white matter changes consistent with chronic microvascular disease. No sign of mass effect, hemorrhage, or midline shift. No evidence of territorial infarct. Skull base and calvarium: The visualized paranasal sinuses and mastoid air cells demonstrate no acute or significant findings. The visualized orbits are grossly unremarkable. No skull fractures. IMPRESSION: 1. No evidence of acute intracranial abnormality on this unenhanced CT. 2. Mild chronic microvascular ischemic changes. Findings discussed with Dr. ROBERTS at 2:35 p.m. Please note that all CT scans at this facility use dose modulation, iterative reconstruction, and/or weight-based dosing when appropriate to reduce radiation dose to as low as reasonably achievable. Dictated by Obed Guzman MD @ 11/14/2023 2:37:03 PM (Electronically Signed)
[2023-11-14 14:20] LABS: Troponin, Point-of-Care* 0.03 ng/ml (0.01-0.04)
[2023-11-14 14:26] LABS: Hematocrit 46.1 % (37.0-53.0); Hemoglobin* 15.5 gm/dL (13.5-17.5); Mean Corpuscular HGB Conc 34 gm/dL (32-36); Mean Corpuscular Hemoglobin 30 pg (26-34); Mean Corpuscular Volume 89 fL (80-100); Neutrophils Percent Auto 74.1 % (42.0-72.0); Platelet Count* 337 K/uL (140-440); RDW Coefficient of Variation % 12.7 % (11.5-15.5); Red Blood Count 5.19 m/uL (4.30-5.90); White Blood Count* 12.97 K/uL (4.50-11.00)
[2023-11-14 14:27] LABS: Basophils Percent Auto 0.2 % (0.0-3.0); Eosinophils Percent Auto 1.6 % (0.0-7.0); Immature Granulocytes Pct Auto 0.2 %; Lymphocytes Percent Auto 18.4 % (20-44); Monocytes Percent Auto 5.5 % (0.0-11.0)
[2023-11-14 14:29] LABS: Slide Review Reflex No
--- NOTE | 2023-11-14 14:46 | ED.GENADULT ---
HPI - General Adult General Date Seen: 11/14/23 Chief complaint: Neuro Symptoms/Altered Deficit Stated complaint: Dizzy, shaking, confused, anxious, SoB Time Seen by Provider: 11/14/23 14:08 Source: patient, RN notes reviewed, old records reviewed and other Mode of arrival: ambulatory Limitations: no limitations History of Present Illness HPI narrative: Patient is a 68-year-old male with underlying coronary artery disease and history of atrial fibrillation status post ablation several years ago, currently maintained on Xarelto, who presents for symptoms of right hand shakiness and feeling emotional since about 1145. Presents to the ER at about 2:00 p.m.. He says what he noticed 1st was that he had difficulty writing, and then he started to feel like he was very anxious and will have periods where he feel like he is going to cry. He says that these last for 5 minutes or so and then symptoms will settle down. He does not know if the writing has improved as he has not tried to write anything since that initial effort, but he says that his right hand feels shaky. He has not noted problems with balance or dizziness, he has not had speech difficulties. He did have trouble dialing 911 he says, but it was because he forgot that he needed to push 1 more button after dialing the number. He then called a friend who brought him into the ER. He denies pain, no headache, chest pain. He takes his medications regularly and has not missed his Xarelto. Related Data Home Medications Medication Instructions Recorded Confirmed blood-glucose meter (Accu-Chek 12/17/22 11/13/23 Guide Glucose Meter) Previous Rx's Medication Instructions Recorded blood sugar diagnostic #100 ea 12/04/22 semaglutide 14 mg tablet 14 mg PO QDAY #90 tabs 12/04/22 blood sugar diagnostic (Accu-Chek #200 ea 02/06/23 Guide test strips) nitroglycerin 0.4 mg sublingual 0.4 mg sublingual Q5M PRN chest 02/06/23 tablet pain #25 tabs lancing device with lancets kit #1 ea 02/11/23 (Accu-Chek FastClix Lancing Device kit) rivaroxaban 20 mg tablet (Xarelto) 20 mg PO QPM #90 tabs 04/22/23 lancets (Accu-Chek Fastclix Lancet #200 ea 08/08/23 Cassia) glipizide 10 mg tablet 10 mg PO BID #180 tabs 08/29/23 metformin 1,000 mg tablet 1,000 mg PO BIDWMEAL #180 tabs 08/29/23 metoprolol tartrate 25 mg tablet 25 mg PO BID #180 tabs 08/29/23 valsartan 160 mg tablet 160 mg PO QDAY #90 tabs 08/29/23 amlodipine 10 mg tablet 10 mg PO DAILY #90 tabs 09/02/23 atorvastatin 40 mg tablet 40 mg PO DAILY #90 tabs 09/02/23 Allergies Allergy/AdvReac Type Severity Reaction Status Date / Time No Known Drug Allergies Allergy Verified 11/13/23 14:25 Review of Systems Status of ROS: Reports: 10 or more systems reviewed and unremarkable except as noted in History and below [facility] Medical History Thoracic lymphadenopathy (09/18/12) ?R59.0 - Localized enlarged lymph nodes (ICD-10) History of palpitations (2005) ?Z87.898 - Personal history of other specified conditions (ICD-10) Surgical History History of arthroscopy of shoulder (04/21/20) ?Z98.890 - Other specified postprocedural states (ICD-10) History of appendectomy (07/29/09) ?Z90.49 - Acquired absence of other specified parts of digestive tract (ICD-10) Hematoma of thigh (06/29/13) ?S70.10XA - Contusion of unspecified thigh, initial encounter (ICD-10) Social History Smoking Status: Never smoker How often do you have a drink containing alcohol: never How often do you have six or more drinks on one occasion: Never AUDIT-C Alcohol total score: 0 Non-prescribed substance use: denies use Little interest or pleasure in doing things: not at all Feeling down, depressed, or hopeless: not at all Exam Narrative: Exam Narrative: Vital signs as noted above. In general, an alert, nontoxic male. Head: Normocephalic, atraumatic. Eyes: Pupils are equal reactive. Extraocular movements are full. Conjunctivae are normal. ENT: Mucous membranes are moist. Throat is normal. Tongue is midline. Neck: Supple without lymphadenopathy. Heart: Regular rate and rhythm. No murmur or rub. Lungs: Clear bilaterally. No increased work of breathing, crackles or wheezes. Abdomen: Soft and nontender. No organomegaly. Extremities: Well perfused. No edema. No calf tenderness. Pulses intact. Neurologic: Patient is alert and oriented to person and place. Speech is fluent. Face is symmetric. Moves all extremities equally. Cerebellar function intact with [id number] testing. Fine motor function intact bilaterally. He was able to write a sentence as directed, he notes that his handwriting is shakier than usual but had no difficulty with production of the hand writing specimen otherwise. Affect: Tearful and anxious. Skin: Warm and dry. Well perfused. Const: Vital Signs, click to edit/add: Vital Signs - 24 hr 11/14/23 13:58 11/14/23 13:59 11/14/23 14:00 Temperature Pulse Rate 108 H 102 H 102 H Pulse Rate [Pulse Oximeter] Respiratory Rate Blood Pressure 193/101 H 181/95 H Blood Pressure [Ri ght Upper Arm] Pulse Oximetry 97 96 97 Oxygen Delivery Me thod 11/14/23 14:09 11/14/23 14:20 11/14/23 14:21 Temperature 98.9 F Pulse Rate 93 95 Pulse Rate [Pulse Oximeter] 102 H Respiratory Rate 24 Blood Pressure 167/97 H Blood Pressure [Ri ght Upper Arm] 193/101 H Pulse Oximetry 95 96 97 Oxygen Delivery Me thod Room Air 11/14/23 14:22 11/14/23 14:30 11/14/23 14:32 Temperature Pulse Rate 91 91 87 Pulse Rate [Pulse Oximeter] Respiratory Rate Blood Pressure 152/79 H Blood Pressure [Ri ght Upper Arm] Pulse Oximetry 98 96 95 Oxygen Delivery Me thod 11/14/23 14:33 11/14/23 14:45 11/14/23 14:47 Temperature Pulse Rate 88 86 84 Pulse Rate [Pulse Oximeter] Respiratory Rate Blood Pressure 145/77 H Blood Pressure [Ri ght Upper Arm] Pulse Oximetry 97 96 95 Oxygen Delivery Me thod 11/14/23 15:00 11/14/23 15:02 11/14/23 15:15 Temperature Pulse Rate 82 80 85 Pulse Rate [Pulse Oximeter] Respiratory Rate Blood Pressure 144/81 H Blood Pressure [Ri ght Upper Arm] Pulse Oximetry 97 96 97 Oxygen Delivery Me thod 11/14/23 15:30 11/14/23 15:32 11/14/23 15:33 Temperature Pulse Rate 83 83 89 Pulse Rate [Pulse Oximeter] Respiratory Rate Blood Pressure 154/82 H Blood Pressure [Ri ght Upper Arm] Pulse Oximetry 97 97 97 Oxygen Delivery Me thod 11/14/23 15:45 11/14/23 16:00 11/14/23 16:02 Temperature Pulse Rate 85 80 81 Pulse Rate [Pulse Oximeter] Respiratory Rate Blood Pressure 138/82 Blood Pressure [Ri ght Upper Arm] Pulse Oximetry 98 93 96 Oxygen Delivery Me thod 11/14/23 16:15 11/14/23 16:30 11/14/23 16:32 Temperature Pulse Rate 87 82 83 Pulse Rate [Pulse Oximeter] Respiratory Rate Blood Pressure 152/79 H Blood Pressure [Ri ght Upper Arm] Pulse Oximetry 96 94 94 Oxygen Delivery Me thod Documenting provider has reviewed patient's vital signs: yes Course Course ED Course: Following brief initial evaluation by the nurses, stroke code was called. After my evaluation, he had an NIH score of 0, so I did decide to talk to Neurology before ordering significant imaging. I ordered a head CT right away and he had that which looked unremarkable to me, final radiology read was negative. I spoke with Dr. Blancas, who is on-call for Neurology. He agreed that large vessel disease would be unlikely and that an MRI would be a reasonable next step to see if any of this is related to an intracranial lesion. He also felt that this could be related simply to hypertension and anxiety. Labs thus far show a mildly elevated white blood cell count of 13, hemoglobin of 15.5. Other labs are pending. He did have an EKG which by my review showed a sinus tachycardia, ventricular rate of 104. No acute ST segment changes. T-waves are unremarkable. Labs returned unremarkable, aside from a mildly low CO2 of 18 and an anion gap of 16. His blood sugar is elevated at 280. Symptoms are not suggestive of DKA, patient is a type 2 diabetic. Over time during his time in the ER, symptoms resolved and he now feels back to normal. He did receive a mg of Ativan IV. MRI read as negative by Radiology aside from likely some small-vessel ischemic changes. LFTs are unremarkable, TSH is normal, point of care troponin is 0.03. Discussed with him at this time I do not have a clear explanation for his symptoms, though we have ruled out an acute intracranial process such as stroke, hemorrhage, mass etcetera with MRI and head CT. I would recommend primary care follow-up in the next 1-2 weeks for re-evaluation, neurology follow-up may be appropriate depending on how he is doing. Return at any time for acute new or worsening symptoms. Vital Signs Vital signs: Initial Vital Signs Pulse Rate 108 H 11/14/23 13:58 Blood Pressure 193/101 H 11/14/23 13:58 Blood Pressure Mean 131 H 11/14/23 13:58 Pulse Oximetry 97 11/14/23 13:58 Vital Signs Pulse Rate 108 H 11/14/23 13:58 Blood Pressure 193/101 H 11/14/23 13:58 Pulse Oximetry 97 11/14/23 13:58 Temperature 98.9 F 11/14/23 14:09 Pulse Rate 83 11/14/23 16:32 Respiratory Rate 24 11/14/23 14:09 Blood Pressure 152/79 H 11/14/23 16:32 Pulse Oximetry 94 11/14/23 16:32 Oxygen Delivery Method Room Air 11/14/23 14:09 Medications Administered Medications: Discontinued Medications Generic Name Dose Route Start Last Admin Trade Name Freq PRN Reason Stop Dose Admin Lorazepam 1 mg 11/14/23 14:48 11/14/23 15:15 Lorazepam 2 Mg/Ml Inj IVP 11/14/23 14:49 1 mg ONCE ONE Administration Medical Decision Making Lab Data Labs: Lab Results 11/14/23 11/14/23 11/14/23 Range/Units 14:01 14:01 14:01 WBC 12.97 H (4.50-11.00) K/uL RBC 5.19 (4.30-5.90) m/uL Hgb 15.5 (13.5-17.5) gm/dL Hct 46.1 (37.0-53.0) % MCV 89 (80-100) fL MCH 30 (26-34) pg MCHC 34 (32-36) gm/dL RDW Coeff of Cherelle 12.7 (11.5-15.5) % Plt Count 337 (140-440) K/uL Neut % (Auto) 74.1 H (42.0-72.0) % Lymph % (Auto) 18.4 L (20-44) % [place] % (Auto) 5.5 (0.0-11.0) % Eos % (Auto) 1.6 (0.0-7.0) % Baso % (Auto) 0.2 (0.0-3.0) % Neut # (Auto) 9.60 H (1.7-7.0) K/uL Lymph # (Auto) 2.40 (0.90-2.90) K/uL [place] # (Auto) 0.70 (0.00-0.90) K/UL Eos # (Auto) 0.20 (0.00-0.50) K/uL Baso # (Auto) 0.00 (0.00-0.30) K/uL Abs Immat Gran (auto) 0.00 (0.00-0.30) K/uL Imm/Tot Granulo (auto) 0.2 % Sodium 137 (135-149) mmol/L Potassium 4.4 (3.6-5.1) mmol/L Chloride 103 (96-114) mmol/L Carbon Dioxide 18 L (20-32) mmol/L Anion Gap 16 H (7-15) mEq/L BUN 17 (7-30) mg/dL Creatinine 0.8 (0.5-1.5) mg/dL Estimated Creat Clear 64.69 Estimated GFR 97 ml/min Glucose 280 H (60-115) mg/dL Calcium 9.3 (8.4-10.6) mg/dL Total Bilirubin 0.6 Cancelled (0.1-1.5) mg/dL Direct Bilirubin 0.1 Cancelled (0.0-0.5) mg/dL AST 33 (12-35) U/L ALT (4-50) U/L Alkaline Phosphatase (40-150) U/L Total Protein (6.0-8.3) g/dL Albumin (3.3-5.0) g/dL TSH (0.270-4.200) uIU/mL POC Troponin I (0.01-0.04) ng/ml 11/14/23 11/14/23 11/14/23 Range/Units 14:01 14:01 14:01 WBC (4.50-11.00) K/uL RBC (4.30-5.90) m/uL Hgb (13.5-17.5) gm/dL Hct (37.0-53.0) % MCV (80-100) fL MCH (26-34) pg MCHC (32-36) gm/dL RDW Coeff of Cherelle (11.5-15.5) % Plt Count (140-440) K/uL Neut % (Auto) (42.0-72.0) % Lymph % (Auto) (20-44) % [place] % (Auto) (0.0-11.0) % Eos % (Auto) (0.0-7.0) % Baso % (Auto) (0.0-3.0) % Neut # (Auto) (1.7-7.0) K/uL Lymph # (Auto) (0.90-2.90) K/uL [place] # (Auto) (0.00-0.90) K/UL Eos # (Auto) (0.00-0.50) K/uL Baso # (Auto) (0.00-0.30) K/uL Abs Immat Gran (auto) (0.00-0.30) K/uL Imm/Tot Granulo (auto) % Sodium (135-149) mmol/L Potassium (3.6-5.1) mmol/L Chloride (96-114) mmol/L Carbon Dioxide (20-32) mmol/L Anion Gap (7-15) mEq/L BUN (7-30) mg/dL Creatinine (0.5-1.5) mg/dL Estimated Creat Clear Estimated GFR ml/min Glucose (60-115) mg/dL Calcium (8.4-10.6) mg/dL Total Bilirubin (0.1-1.5) mg/dL Direct Bilirubin (0.0-0.5) mg/dL AST Cancelled (12-35) U/L ALT 31 Cancelled (4-50) U/L Alkaline Phosphatase 117 Cancelled (40-150) U/L Total Protein 8.1 (6.0-8.3) g/dL Albumin (3.3-5.0) g/dL TSH (0.270-4.200) uIU/mL POC Troponin I (0.01-0.04) ng/ml 11/14/23 11/14/23 11/14/23 Range/Units 14:01 14:01 14:13 WBC (4.50-11.00) K/uL RBC (4.30-5.90) m/uL Hgb (13.5-17.5) gm/dL Hct (37.0-53.0) % MCV (80-100) fL MCH (26-34) pg MCHC (32-36) gm/dL RDW Coeff of Cherelle (11.5-15.5) % Plt Count (140-440) K/uL Neut % (Auto) (42.0-72.0) % Lymph % (Auto) (20-44) % [place] % (Auto) (0.0-11.0) % Eos % (Auto) (0.0-7.0) % Baso % (Auto) (0.0-3.0) % Neut # (Auto) (1.7-7.0) K/uL Lymph # (Auto) (0.90-2.90) K/uL [place] # (Auto) (0.00-0.90) K/UL Eos # (Auto) (0.00-0.50) K/uL Baso # (Auto) (0.00-0.30) K/uL Abs Immat Gran (auto) (0.00-0.30) K/uL Imm/Tot Granulo (auto) % Sodium (135-149) mmol/L Potassium (3.6-5.1) mmol/L Chloride (96-114) mmol/L Carbon Dioxide (20-32) mmol/L Anion Gap (7-15) mEq/L BUN (7-30) mg/dL Creatinine (0.5-1.5) mg/dL Estimated Creat Clear Estimated GFR ml/min Glucose (60-115) mg/dL Calcium (8.4-10.6) mg/dL Total Bilirubin (0.1-1.5) mg/dL Direct Bilirubin (0.0-0.5) mg/dL AST (12-35) U/L ALT (4-50) U/L Alkaline Phosphatase (40-150) U/L Total Protein Cancelled (6.0-8.3) g/dL Albumin 5.0 Cancelled (3.3-5.0) g/dL TSH 1.890 (0.270-4.200) uIU/mL POC Troponin I 0.03 (0.01-0.04) ng/ml Discharge Plan Discharge Clinical Impression: Shakiness Patient Disposition: Home, Self-Care Condition: Improved Additional Instructions: I would recommend that you follow-up with your clinic doctor in the next 1-2 weeks for recheck and to see if additional testing or neurology referral would be appropriate. Your test today including blood work, MRI, EKG, all are reassuring. Return for new or worsening symptoms. Prescriptions: No Action (DME) blood sugar diagnostic Strip See Rx Instructions .Route Qty: 100 11RF Rx Instructions: Check twice daily. semaglutide 14 mg tablet 14 mg PO QDAY Qty: 90 3RF atorvastatin 40 mg tablet 40 mg PO DAILY Qty: 90 3RF amlodipine 10 mg tablet 10 mg PO DAILY Qty: 90 3RF (DME) blood-glucose meter [Accu-Chek Guide Glucose Meter] Misc See Rx Instructions .Route Rx Instructions: Patient to test blood sugar BID (DME) Accu-Chek Guide test strips Strip See Rx Instructions .Route Qty: 200 3RF Rx Instructions: use to test blood sugar BID nitroglycerin 0.4 mg tablet, sublingual 0.4 mg sublingual Q5M PRN (Reason: chest pain) Qty: 25 0RF Rx Instructions: do not exceed 3 doses per episode (DME) lancing device with lancets [Accu-Chek FastClix Lancing Dev] Kit See Rx Instructions .Route Qty: 1 0RF Rx Instructions: use to check blood glucose 2 times daily Xarelto 20 mg tablet 20 mg PO QPM Qty: 90 3RF (DME) lancets [Accu-Chek Fastclix Lancet Drum] Misc See Rx Instructions .Route Qty: 200 0RF Rx Instructions: As directed valsartan 160 mg tablet 160 mg PO QDAY Qty: 90 0RF metoprolol tartrate 25 mg tablet 25 mg PO BID Qty: 180 0RF glipizide 10 mg tablet 10 mg PO BID Qty: 180 0RF metformin 1,000 mg tablet 1,000 mg PO BIDWMEAL Qty: 180 0RF Follow Up/Referrals: Indu Dahl MD [Primary Care Provider] - Stand Alone Forms: [employer] Info Instructions
--- NOTE | 2023-11-14 15:05 | ED.NURSE ---
DC Q15 neuro checks per MD Block.
[2023-11-14 15:09] LABS: Chloride* 103 mmol/L (96-114); Potassium* 4.4 mmol/L (3.6-5.1); Sodium* 137 mmol/L (135-149)
[2023-11-14 15:11] LABS: Creatinine* 0.8 mg/dL (0.5-1.5); Est. Creatinine Clearance* 64.69; Estimated Glomerular Filt Rate 97 ml/min
[2023-11-14 15:12] LABS: Alanine Aminotransferase* 31 U/L (4-50); Alkaline Phosphatase* 117 U/L (40-150); Anion Gap 16 mEq/L (7-15); Aspartate Amino Transferase* 33 U/L (12-35); Bilirubin Direct* 0.1 mg/dL (0.0-0.5); Bilirubin Total* 0.6 mg/dL (0.1-1.5); Blood Urea Nitrogen* 17 mg/dL (7-30); Calcium* 9.3 mg/dL (8.4-10.6); Carbon Dioxide* 18 mmol/L (20-32); Glucose* 280 mg/dL (60-115); Total Protein* 8.1 g/dL (6.0-8.3)
[2023-11-14] MEDS: LORazepam 2 MG/ML inj 1 MG IVP (15:15)
--- NOTE | 2023-11-14 16:30 | CRLHL7_ITS ---
For Patients: As a result of the Century Cures Act, medical imaging exams and procedure reports are released immediately into your electronic medical record. You may view this report before your referring provider. If you have questions, please contact your health care provider. INDICATION: Right hand shaking. Difficulty writing. COMPARISON: CT from earlier today. MRI 08/06/2019. Technique: Multiplanar T1, T2, FLAIR and diffusion-weighted imaging. FINDINGS: Mild generalized volume loss. Scattered patchy foci of T2/FLAIR signal hyperintensity within the white matter of both cerebral hemispheres and ann marie are nonspecific but likely represent chronic deep white matter small vessel ischemic changes. No intracranial hemorrhage. No abnormal ventricular dilatation. Intracranial vascular flow voids are preserved. No mass effect. No midline shift. No restricted diffusion to suggest acute ischemia. Bilateral orbits are unremarkable. Normal appearing sella. Visualized paranasal sinuses and mastoid air cells are unremarkable. IMPRESSION: 1. No acute intracranial abnormality 2. Mild generalized volume loss. Scattered patchy foci of T2 signal within the white matter of both cerebral hemispheres and ann marie are nonspecific but likely represent chronic deep white matter small vessel ischemic changes. Dictated by Marquise Mccurdy MD @ 11/14/2023 5:29:34 PM (Electronically Signed)
--- OUTSIDE RECORDS SUMMARY | 2023-11-14 17:48 | XMS_ITS | Encounter Summary ---
Author Name Unknown Organization [facility] Address [address] [place] [address] Care Team Providers Care Fruit Thinner Machine Operator Name Role Phone Unavailable Primary Care Provider Unavailabl e Reason for Visit * Reason Onset Date Comments BP update; RX request to other pharmacy 01/17/20 Encounter Details Date Type Department Care Team (Latest Contact Info) Description 01/16/2023 Clinical Communication Department of Cardiovascular Medicine in [place], [place] [address] [place] [address] Tone Lawson M.D. [address] [place] [address] BP update; RX request to other pharmacy [...] often do you attend chur ch or moravian services? Never 11/17/2021 Do you belong to any clubs o r organizations such as holiness groups, unions, fraternal or athletic groups, or [...] and heating? Not hard at all 11/17/2021 [facility] of Occupat ional Health - [...] place to sleep or slept in a chcf (including now)? No 11/17/2021 Nutrition Answer Date [...] Sex Assigned at Male 11/17/2021 12:19 PM PIN INSERTER REGULATOR Gender Identity Male 11/17/2021 12:19 PM PIN INSERTER REGULATOR Sexual Orientation Straight 11/17/2021 12 :19 PM PIN INSERTER REGULATOR documented as of this encounter Miscellaneous Notes * Telephone Encounter - Zuri [place] RJuan Antonio - 01/16/2023 11:12 AM CDT PLAN The following information was provided: RN called patient, Carlos Power to let him know about the dose increase and that a new rx has been sent to [facility]. He will reach out if he has [...] AM CDT Phone (Incoming) Carlos PowerTorsten (Self) [phone] (M) Patient expects communication via portal: No Valid authorization on file: Yes Medication Management Questions to be answered: Should pt continue on the amlodipine at current dose or increase? Medication/dose: Amlodipine 5 mg daily Recent change/new symptom/side effect: None Pharmacy clarification: NOTE: Please send new RX to [facility] (not [facility] in [place]) Additional comments: Dr. Lawson saw the pt [...] that the new RX be sent to [facility]. It initially was sent to his local pharmacy just so he could start taking it immediately but he gets all of his meds through [facility] and he is at the deadline required [...]
--- OUTSIDE RECORDS SUMMARY | 2023-11-14 17:48 | XMS_ITS | Referral Summary ---
Author Name Unknown Organization [facility] Address [address] [place] [address] Care Team Providers Care Battery Assembler Plastic Name Role Phone Unavailable Primary Care Provider Unavailabl e Source Comments Patient records contain information from all sites at [facility]. For routine questions regarding patient records, call [phone] during business hours, M-F 8:00 AM - 5:00 PM Central Time. Record requests for emergency care only can be directed to [phone] at any time.[facility] Allergies No known active allergies Medications Medication [...] often do you attend chur ch or jewish services? Never 11/17/2021 Do you belong to any clubs o r organizations such as episcopal groups, unions, fraternal or athletic groups, or [...] and heating? Not hard at all 11/17/2021 [facility] of Occupat ional Health - Occupational Stress [...] place to sleep or slept in a usp (including now)? No 11/17/2021 Nutrition Answer Date [...] Sex Assigned at Male 11/17/2021 12:19 PM WELCOME DESK AGENT Gender Identity Male 11/17/2021 12:19 PM WELCOME DESK AGENT Sexual Orientation Straight 11/17/2021 12 :19 PM WELCOME DESK AGENT Last Filed Vital Signs Vital Sign Reading Time Taken Comments Blood Pressure 168/81 12/27/2022 2:47 PM WELCOME DESK AGENT Pulse 80 12/27/2022 2:47 PM WELCOME DESK AGENT Temperature - - Respiratory Rate 16 10/19/2016 12:0 3 PM WELCOME DESK AGENT Vital sign result from Clinical Notes. Oxygen Saturation - - Inhaled Oxygen Concentration - - Weight 95.8 kg (211 lb 5 oz) 12/27/2022 2:47 PM WELCOME DESK AGENT Height 171.2 cm (5' 7.4) 12/27/2022 2: 47 PM WELCOME DESK AGENT Body Mass Index 32.7 12/27/2022 2:47 PM WELCOME DESK AGENT Plan of Treatment Not on file Medical Devices Implanted Type Area Lotus Notes Administrator Device Identifier Shelf Expiration Date Model / Serial / Lot Premier 3.0 X 16 - [id number] Implanted:Qty: 1 on 03/14/2016 Cardiac Stent [employer] Description:Device Manufactu rer - [employer]. Device Status Text - [id number].
--- OUTSIDE RECORDS SUMMARY | 2023-11-14 17:48 | XMS_ITS | Encounter Summary ---
Author Name Unknown Organization [facility] Address [address] [place] [address] Care Team Providers Care Pot Washer Name Role Phone Unavailable Primary Care Provider Unavailabl e Reason for Referral * Outpatient (Routine) - Closed Specialty Diagnoses / Procedures Referred By Contac t Referred To Contact Diagnoses Hyperlipidemia Diabetes Mellitus Type 2 (HCC) Procedures Echo Transthoracic (TTE) Tone Lawson M.D. [address] [place] [address] [facility] Referral ID Status Reason Start Date Expiration Date Visits Re quested Visits Authorized [id number] Closed 11/17/2021 11/17/2022 1 1 OLEUM GEOLOGY FACULTY MEMBER Reason for Visit * Outpatient (Routine) - Closed Specialty Diagnoses / Procedures Referred By Mati perales Referred To Contact Diagnoses Hyperlipidemia Diabetes Mellitus Type 2 (HCC) Procedures Echo Transthoracic (TTE) Tone Lawson M.D. [address] [place] [address] [facility] Referral ID Status Reason Start Date Expiration Date Visits Re quested Visits Authorized [id number] Closed 11/17/2021 11/17/2022 1 1 Encounter Details Date Type Department Care Team (Latest Contact Info) Description 12/26/2022 9:42 AM PETROLEUM GEOLOGY FACULTY MEMBER - 12/26/2022 11:59 PM PETROLEUM GEOLOGY FACULTY MEMBER Hospital Encounter Department of Cardiovascular Diseases in [place], [place] [address] [place] [phone] [place] [address] Hyperlipidemia; Diabetes Mellitus Type 2 (HCC) Discharge [...] week 11/17/2021 How often do you attend [facility] or latter-day services? Never 11/17/2021 Do you belong to any clubs o r organizations such as taoist groups, unions, fraternal or athletic groups, or [...] and heating? Not hard at all 11/17/2021 [facility] of Occupat ional Health - Occupational Stress [...] Sex Assigned at Male 11/17/2021 12:19 PM PETROLEUM GEOLOGY FACULTY MEMBER Gender Identity Male 11/17/2021 12:19 PM PETROLEUM GEOLOGY FACULTY MEMBER Sexual Orientation Straight 11/17/2021 12 :19 PM PETROLEUM GEOLOGY FACULTY MEMBER documented as of this encounter Medications at [...] ECHO DOPPLER COLOR Routine 12/26/2022 10:33 AM PETROLEUM GEOLOGY FACULTY MEMBER Hyperlipidemia Diabetes Mellitus Type 2 (HCC) documented in this encounter Results * (TTE) 2D ECHO DOPPLER COLOR (12/26/2022 10:33 AM PETROLEUM GEOLOGY FACULTY MEMBER) Ejection Fraction 65 MC CV EIMS Sinus [...] Region Laterality Modality Echocardiography 12/26/2022 9:46 AM PETROLEUM GEOLOGY FACULTY MEMBER Impressions 12/26/2022 10:37 AM PETROLEUM GEOLOGY FACULTY MEMBER Echocardiogram performed per left ventricular function protocol. Last full echocardiogram performed 11/16/2021. LEFT VENTRICLE:Normal left ventricular chamber size. Calculated 2-D linear left ventricular ejection fraction 65%. Left ventricular volumes were performed but not reported based on driver lifter of sanitation truck's judgment. No regional wall motion abnormalities. Normal [...] the Order-Level Documents. Narrative 12/26/2022 10:37 AM PETROLEUM GEOLOGY FACULTY MEMBER For the complete report, see the Order-Level [...] volumes wereperformed but not reported based on driver lifter of sanitation truck's judgment. No regionalwall motion abnormalities. Normal left [...]
--- OUTSIDE RECORDS SUMMARY | 2023-11-14 17:48 | XMS_ITS | Clinical Summary ---
Author Name Unknown Organization [facility] Address [address] [place] [address] Care Team Providers Care Local Hazmat Driver Name Role Phone Unavailable Primary Care Provider Unavailabl e Source Comments Patient records contain information from all sites at [facility]. For routine questions regarding patient records, call [phone] during business hours, M-F 8:00 AM - 5:00 PM Central Time. Record requests for emergency care only can be directed to [phone] at any time.[facility] Allergies No known active allergies Medications Medication [...] Bassam Coronary artery disease Father's Brother 2 [place] Dementia Father's Brother 3 Loyis Alcohol abuse [...] week 11/17/2021 How often do you attend [facility] or yazidism services? Never 11/17/2021 Do you belong to any clubs o r organizations such as rastafarian groups, unions, fraternal or athletic groups, or [...] and heating? Not hard at all 11/17/2021 [facility] of Occupat ional Health - Occupational Stress [...] place to sleep or slept in a fdc (including now)? No 11/17/2021 Nutrition Answer Date [...] Sex Assigned at Male 11/17/2021 12:19 PM EDGER MACHINE SETTER Gender Identity Male 11/17/2021 12:19 PM EDGER MACHINE SETTER Sexual Orientation Straight 11/17/2021 12 :19 PM EDGER MACHINE SETTER Last Filed Vital Signs Vital Sign Reading Time Taken Comments Blood Pressure 168/81 12/27/2022 2:47 PM EDGER MACHINE SETTER Pulse 80 12/27/2022 2:47 PM EDGER MACHINE SETTER Temperature - - Respiratory Rate 16 10/19/2016 12:0 3 PM EDGER MACHINE SETTER Vital sign result from Clinical Notes. Oxygen Saturation - - Inhaled Oxygen Concentration - - Weight 95.8 kg (211 lb 5 oz) 12/27/2022 2:47 PM EDGER MACHINE SETTER Height 171.2 cm (5' 7.4) 12/27/2022 2: 47 PM EDGER MACHINE SETTER Body Mass Index 32.7 12/27/2022 2:47 PM EDGER MACHINE SETTER Plan of Treatment Health Maintenance Due Date [...] history exists Medical Devices Implanted Type Area Greenkeeper Device Identifier Shelf Expiration Date Model / Serial / Lot Premier 3.0 X 16 - [id number] Implanted:Qty: 1 on 03/14/2016 Cardiac Stent [place] [employer] Description:Device Manufactu rer - [employer]. Device Status Text - [id number].
--- OUTSIDE RECORDS SUMMARY | 2023-11-14 17:48 | XMS_ITS | Encounter Summary ---
Author Name Unknown Organization [facility] Address [address] [place] [address] Care Team Providers Care Floorman Name Role Phone Unavailable Primary Care Provider Unavailabl e Reason for Visit * Reason Comments Med Refill Encounter Details Date Type Department Care Team (Late st Contact Info) Description 12/27/2022 Refill Department of Cardiovascular Medicine in [place], [place] [address] [place] [address] Tone Lawson M.D. [address] [place] [address] Med Refill Social History Tobacco Use Types [...] any clubs o r organizations such as catholic groups, unions, fraternal or athletic groups, or [...] and heating? Not hard at all 11/17/2021 [facility] of Occupat ional Health - Occupational Stress [...] Sex Assigned at Male 11/17/2021 12:19 PM CLAIM ADMINISTRATOR Gender Identity Male 11/17/2021 12:19 PM CLAIM ADMINISTRATOR Sexual Orientation Straight 11/17/2021 12 :19 PM CLAIM ADMINISTRATOR documented as of this encounter Plan of Treatment Not on file documented as of this encounter Visit Diagnoses Not on filedocumented in this encounter
--- OUTSIDE RECORDS SUMMARY | 2023-11-14 17:48 | XMS_ITS | Encounter Summary ---
Author Name Unknown Organization [facility] Address [address] [place] [address] Care Team Providers Care Waste Examiner Name Role Phone Unavailable Primary Care Provider Unavailabl e Encounter Details Date Type Department Care Team (Latest Contact Info) Description 12/26/2022 8:33 AM RESERVATION SALES AGENT - 12/26/2022 9:41 AM [facility] Hospital Encounter Department of Laboratory Medicine and Pathology, [facility] in [place], [place] [address] [place] [address] Tone Lawson M.D. [address] [place] [address] Hyperlipidemia; Diabetes Mellitus Type 2 (HCC) Discharge [...] often do you attend chur ch or jew services? Never 11/17/2021 Do you belong to any clubs o r organizations such as advent groups, unions, fraternal or athletic groups, or [...] and heating? Not hard at all 11/17/2021 [facility] of Occupat ional Health - Occupational [...] place to sleep or slept in a longterm (including now)? No 11/17/2021 Nutrition Answer Date [...] Sex Assigned at Male 11/17/2021 12:19 PM RESERVATION SALES AGENT Gender Identity Male 11/17/2021 12:19 PM RESERVATION SALES AGENT Sexual Orientation Straight 11/17/2021 12 :19 PM RESERVATION SALES AGENT documented as of this encounter Medications at [...] LIPID PANEL, S Routine 12/26/2022 8:40 AM RESERVATION SALES AGENT Hyperlipidemia Diabetes Mellitus Type 2 (HCC) CBC WITH DIFFERENTIAL, B Routine 12/26/2022 8:40 AM RESERVATION SALES AGENT Hyperlipidemia Diabetes Mellitus Type 2 (HCC) BUN (BLOOD UREA NITROGEN), S/P Routine 12/26/2022 8:40 AM RESERVATION SALES AGENT Hyperlipidemia Diabetes Mellitus Type 2 (HCC) SODIUM, S/P Routine 12/26/2022 8:40 AM RESERVATION SALES AGENT Hyperlipidemia Diabetes Mellitus Type 2 (HCC) POTASSIUM, S/P Routine 12/26/2022 8:40 AM RESERVATION SALES AGENT Hyperlipidemia Diabetes Mellitus Type 2 (HCC) HEMOGLOBIN A1C, B Routine 12/26/2022 8:4 0 AM RESERVATION SALES AGENT Hyperlipidemia Diabetes Mellitus Type 2 (HCC) GLUCOSE, FASTING, S/P Routine 12/26/2022 8:40 AM RESERVATION SALES AGENT Hyperlipidemia Diabetes Mellitus Type 2 (HCC) CREATININE WITH EGFR, S/P Routine 12/26/2022 8:40 AM RESERVATION SALES AGENT Hyperlipidemia Diabetes Mellitus Type 2 (HCC) CHLORIDE, S/P Routine 12/26/2022 8:40 AM RESERVATION SALES AGENT Hyperlipidemia Diabetes Mellitus Type 2 (HCC) documented in this encounter Results * BUN (Blood Urea Nitrogen) (12/26/2022 8:40 AM RESERVATION SALES AGENT) Pathologist [facility] BUN (Blood Urea Nitrogen), S 10 8 - 24 mg/dL 12/26/2022 9:45 AM RESERVATION SALES AGENT DTL Blood (Blood, Venous) 12/26/2022 8:40 AM RESERVATION SALES AGENT 12/26/2022 9:22 AM RESERVATION SALES AGENT Tone Lawson M.D. LAB BLOOD ADD-ON [facility] [address] [place] [address], [facility] [address] [place] [address] * (ABNORMAL) CBC with Differential, Blood (12/26/2022 8:40 AM RESERVATION SALES AGENT) Pathologist [facility] Hemoglobin 15.5 13.2 - 16.6 g/dL 12/26/2022 9:35 AM RESERVATION SALES AGENT DTL Hematocrit 47.1 38.3 - 48.6 % 12/26/2022 9:35 AM RESERVATION SALES AGENT DTL Erythrocytes 5.14 4.35 - 5.65 x10(12)/L 12/26/2022 9:35 AM RESERVATION SALES AGENT DTL MCV 91.6 78.2 - 97.9 fL 12/26/2022 9:35 AM RESERVATION SALES AGENT DTL RBC Distrib Width 13.0 11.8 - 14.5 % 12/26/2022 9:35 AM RESERVATION SALES AGENT DTL Platelet Count 287 135 - 317 x10(9)/L 12/26/2022 9:35 AM RESERVATION SALES AGENT DTL Leukocytes 9.8(H) 3.4 - 9.6 x10(9)/L 12/26/2022 9:35 AM RESERVATION SALES AGENT DTL Neutrophils 6.85(H) 1.56 - 6.45 x10(9)/L 12/26/2022 9:35 AM RESERVATION SALES AGENT DTL Lymphocytes 2.14 0.95 - 3.07 x10(9)/L 12/26/2022 9:35 AM RESERVATION SALES AGENT DTL Monocytes 0.53 0.26 - 0.81 x10(9)/L 12/26/2022 9:35 AM RESERVATION SALES AGENT DTL Eosinophils 0.21 0.03 - 0.48 x10(9)/L 12/26/2022 9:35 AM RESERVATION SALES AGENT DTL Basophils 0.04 0.01 - 0.08 x10(9)/L 12/26/2022 9:35 AM RESERVATION SALES AGENT DTL Blood (Blood, Venous) 12/26/2022 8:40 AM RESERVATION SALES AGENT 12/26/2022 9:04 AM RESERVATION SALES AGENT Tone Lawson M.D. LAB BLOOD ADD-ON Performing Organization Address City/[facility]/ZIP Co de Phone Number [facility] [address] [place] [address], [facility] [address] [address] * Chloride (12/26/2022 8:40 AM RESERVATION SALES AGENT) Chloride, S 106 98 - 107 mmol/L 12/26/2022 9:45 AM RESERVATION SALES AGENT DTL Blood (Blood, Venous) 12/26/2022 8:40 AM RESERVATION SALES AGENT 12/26/2022 9:22 AM RESERVATION SALES AGENT Tone Lawson M.D. LAB BLOOD ADD-ON Performing Organization Address City/[facility] Co de Phone Number [facility] [address] [place] [address], [facility] [place] [address] * Creatinine with Estimated GFR (12/26/2022 8:40 AM RESERVATION SALES AGENT) Creatinine 0.88 0.74 - 1.35 mg/dL 12/26/2022 9:45 AM RESERVATION SALES AGENT DTL Estimated GFR (eGFR) >90 >=60 mL/min/BSA 12/26/2022 9:45 AM RESERVATION SALES AGENT DTL Comment: Estimated GFR calculated using the 2020 CKD_EPI creatinine equation. Blood (Blood, Venous) 12/26/2022 8:40 AM RESERVATION SALES AGENT 12/26/2022 9:22 AM RESERVATION SALES AGENT Narrative Authorizing Provider Result Prema Lawson M.D. LAB BLOOD ADD-ON Performing Organization Address City/[facility]/ZIP Co de Phone Number [facility] [address] [place] [address], [facility] [address] [place] [address] * (ABNORMAL) Glucose, Fasting (12/26/2022 8:40 AM RESERVATION SALES AGENT) Pathologist [facility] Glucose, P 144(H) 70 - 100 mg/dL 12/26/2022 9:38 AM RESERVATION SALES AGENT DTL Last Intake 8 hr 12/26/2022 9:22 AM RESERVATION SALES AGENT DTL Blood (Blood, Venous) 12/26/2022 8:40 AM RESERVATION SALES AGENT 12/26/2022 9:22 AM RESERVATION SALES AGENT Tone Lawson M.D. LAB BLOOD NON ADD-ON Performing Organization Address [facility] Co de Phone Number [facility] [address] [place] [address], [facility] [address] [place] [address] * (ABNORMAL) Hemoglobin A1c (12/26/2022 8:40 AM RESERVATION SALES AGENT) Pathologist [facility] Hemoglobin A1c, B 8.3(H) 4.0 - 5.6 % 12/26/2022 10:42 AM RESERVATION SALES AGENT DTL Comment: Hemoglobin A1c values greater than or equal to 6.5 percent are diagnostic for diabetes mellitus. ??Diagnosis should be confirmed by repeat testing. ??In diabetic patients, HbA1c goals should be discussed with healthcare provider. Blood (Blood, Venous) 12/26/2022 8:40 AM RESERVATION SALES AGENT 12/26/2022 9:04 AM RESERVATION SALES AGENT Narrative Authorizing Provider Result Prema Lawson M.D. LAB BLOOD ADD-ON Performing Organization Address City/[facility] Co de Phone Number [facility] [address] [place] [address], [facility] [address] [place] [address] * (ABNORMAL) Lipid Panel (12/26/2022 8:40 AM RESERVATION SALES AGENT) Triglycerides 61 mg/dL 12/26/2022 9:45 AM RESERVATION SALES AGENT DTL Comment: ----REFERENCE VALUE---- Normal: <150 mg/dL Borderline High: 150-199 mg/dL High: 200-499 mg/dL Very High: > or =500 mg/dL Cholesterol, Total 78 mg/dL 2022 9:45 AM RESERVATION SALES AGENT DTL Comment: ----REFERENCE VALUE---- Desirable: < 200 mg/dL Borderline High: 200 - 239 mg/dL High: > or = 240 mg/dL Cholesterol, LDL, Calculated 36 mg/dL 12/26/2022 9:45 AM RESERVATION SALES AGENT DTL Comment: ----REFERENCE VALUE---- Desirable: <100 mg/dL Above Desirable: 100-129 mg/dL Borderline High: 130-159 mg/dL High: 160-189 mg/dL Very High: >=190 mg/dL ----ADDITIONAL INFORMATION---- LDL cholesterol calculated using the Shahid/NIH equation. Cholesterol, HDL, S 28(L) >=40 mg/dL 12/26/2022 9:45 AM RESERVATION SALES AGENT DTL Cholesterol, Non-HDL, Calculated 50 mg/dL 12/26/2022 9:45 AM RESERVATION SALES AGENT DTL Comment: ----REFERENCE VALUE---- Desirable: <130 mg/dL Above Desirable: 130-159 mg/dL Borderline High: 160-189 mg/dL High: 190-219 mg/dL Very High: > or =220 mg/dL Fasting (8 HR or more) 17:30 12/26/2022 9:22 AM RESERVATION SALES AGENT DTL Blood (Blood, Venous) 12/26/2022 8:40 AM RESERVATION SALES AGENT 12/26/2022 9:22 AM RESERVATION SALES AGENT Tone Lawson M.D. LAB BLOOD ADD-ON [facility] [address] [place] [address], [place] DTL [facility] [address] [place] [address] * Potassium (12/26/2022 8:40 AM RESERVATION SALES AGENT) Potassium, S 4.5 3.6 - 5.2 mmol/L 12/26/2022 9:45 AM RESERVATION SALES AGENT DTL Blood (Blood, Venous) 12/26/2022 8:40 AM RESERVATION SALES AGENT 12/26/2022 9:22 AM RESERVATION SALES AGENT Tone Lawson M.D. LAB BLOOD ADD-ON [facility] [address] [place] [address], [facility] [address] [place] [address] * Sodium (12/26/2022 8:40 AM RESERVATION SALES AGENT) Sodium, S 143 135 - 145 mmol/L 12/26/2022 9:45 AM RESERVATION SALES AGENT DTL Blood (Blood, Venous) 12/26/2022 8:40 AM RESERVATION SALES AGENT 12/26/2022 9:22 AM RESERVATION SALES AGENT Tone Lawson M.D. LAB BLOOD ADD-ON [facility] [address] [place] [address], [facility] [address] [place] [address] documented in this encounter Visit Diagnoses Diagnosis Hyperlipidemia Diabetes Mellitus Type 2 (HCC) documented in this encounter
--- OUTSIDE RECORDS SUMMARY | 2023-11-14 17:48 | XMS_ITS | Clinical Summary ---
Author Name Unknown Organization [facility] [place] [address] Care Team Providers Care Supervisor Continuous Weld Pipe Mill Name Role Phone Indu Dahl MD Primary Care Provider [phone] Allergies No known active allergies Medications Medication [...] Influenza for age 65+ 06/21/2023 Care Teams Supervisor Continuous Weld Pipe Mill Relationship Specialty Start Date End Date Indu Dahl MD [address] [place] [address] PCP - General Internal Medicine 01/12/19
--- OUTSIDE RECORDS SUMMARY | 2023-11-14 17:48 | XMS_ITS | Encounter Summary ---
Author Name Unknown Organization [facility] Address [address] [place] [address] Care Team Providers Care Rework Machine Operator Name Role Phone Unavailable Primary Care Provider Unavailabl e Reason for Referral * Outpatient (Routine) - Authorized Specialty Diagnoses / Procedures Referred By Mati perales Referred To Contact Diagnoses Hyperlipidemia Diabetes Mellitus Type 2 (HCC) Procedures ECG 12 Lead Tone Lawson M.D. 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 [address] [place] [address] [facility] Referral ID Status Reason Start Date Expiration Date V isits Requested Visits Authorized [id number] Authorized 12/27/2022 12/27/2023 1 1 STANT MECHANIC * Outpatient (Routine) - Authorized Specialty Diagnoses / Procedures Referred By Contac t Referred To Contact Cardiovascular Disease Diagnoses Hyperlipidemia Diabetes Mellitus Type 2 (HCC) Tone Lawson M.D. [address] [place] [address] [facility] Referral ID Status Reason Start Date Expiration Date V isits Requested Visits Authorized [id number] Authorized 12/27/2022 12/26/2025 1 1 Scheduling Instructions [facility] Return visit in two years (2024) with testing beforehand--ideally as a one day visit with testing in the morning and return visit that afternoon STANT MECHANIC Reason for Visit * Outpatient (Routine) - Closed Specialty Diagnoses / Procedures Referred By Mati t Referred To Contact Cardiovascular Disease Diagnoses Hyperlipidemia Diabetes Mellitus Type 2 (HCC) Tone Lawson M.D. [address] [place] [address] [facility] Referral ID Status Reason Start Date Expiration Date Visits Re quested Visits Authorized [id number] Closed 11/17/2021 11/17/2022 1 1 Encounter Details Date Type Department Care Team (Latest Contact Info) Description 12/27/2022 3:00 PM ASSISTANT MECHANIC Office Visit Department of Cardiovascular Medicine in [place], [place] [address] [place] [address] Tone Lawson M.D. [address] [place] [phone] Hyperlipidemia; Diabetes Mellitus Type 2 (HCC); Atherosclerotic Heart Disease [place] Coronary Artery With Other Forms Angina Pectoris [...] often do you attend chur ch or congregation services? Never 11/17/2021 Do you belong to any clubs o r organizations such as sabianist groups, unions, fraternal or athletic groups, or [...] and heating? Not hard at all 11/17/2021 [facility] - Occupational [...] place to sleep or slept in a [place] health [place] facility (including now)? No 11/17/2021 Nutrition Answer Date [...] Sex Assigned at Male 11/17/2021 12:19 PM ASSISTANT MECHANIC Gender Identity Male 11/17/2021 12:19 PM ASSISTANT MECHANIC Sexual Orientation Straight 11/17/2021 12 :19 PM ASSISTANT MECHANIC documented as of this encounter Last Filed Vital Signs Vital Sign Reading Time Taken Comments Blood Pressure 168/81 12/27/2022 2:47 PM ASSISTANT MECHANIC Pulse 80 12/27/2022 2:47 PM ASSISTANT MECHANIC Temperature - - Respiratory Rate - - Oxygen Saturation - - Inhaled Oxygen Concentration - - Weight 95.8 kg (211 lb 5 oz) 12/27/2022 2:47 PM ASSISTANT MECHANIC Height 171.2 cm (5' 7.4) 12/27/2022 2:47 PM ASSISTANT MECHANIC Body Mass Index 32.7 12/27/2022 2:47 PM ASSISTANT MECHANIC documented in this encounter Progress Notes * [...] he has nothing to suggest angina nor [place] criteria. He is also fortuitously managed to [...] mitigate to a target of less than [phone] mEqa day. I will see him back [...] Questions were answered. Tone Lawson M.D. 12/27/22 STANT MECHANIC documented in this encounter Plan of Treatment Scheduled Orders Name Type Priority Associated Diagnoses Order Schedule Echo Transthoracic (TTE) Echocardiography Routine Hyperlipidemia Diabetes Mellitus Type 2 (HCC) Atherosclerotic Heart Disease [place] Coronary Artery With Other Forms Angina Pectoris [...] Mellitus Type 2 (HCC) Atherosclerotic Heart Disease [place] Coronary Artery With Other Forms Angina Pectoris (Stable Angina/Angina Of Exertion) (HCC) documented in this encounter
--- OUTSIDE RECORDS SUMMARY | 2023-11-14 17:48 | XMS_ITS ---
Author Name Unknown Organization [facility] Address [address] [place] [address] Care Team Providers Care Heel Builder Name Role Phone Unavailable Unavailable Unavailable Surgery Details Not on file Complications Check Surgery Details section. Procedure Estimated Blood Loss Check Surgery Details section. Procedure Findings Check Surgery Details section. Procedure Specimens Taken Check Surgery Details section.
== END 2023-11-14 18:28 | disposition home or self-care (01) ==
LOC: ED 17:46
PROVIDERS: Emergency Provider Emergency Medicine; PCP Internal Medicine
DX: G25.0 Essential tremor (principal)
CPT/HCPCS: 36415; 70450; 70551; 80048; 80076; 84443; 84484; 85025; 93005; 96374; 99284; 99291; J2060

== ENCOUNTER 2024-09-10 08:15 | Outpatient (CLI) | payer MEDICARE, SELFPAY ==
--- OUTSIDE RECORDS SUMMARY | 2024-09-10 08:19 | XMS_ITS | Clinical Summary ---
Author Organization [facility] Address [address] [place] [address] Care Team Providers Care Assistant Family Teacher Name Role Phone Unavailable Primary Care Provider Unavailabl e Source Comments Patient records contain information from all sites at [facility]. For routine questions regarding patient records, call [phone] during business hours, M-F 8:00 AM - 5:00 PM Central Time. Record requests for emergency care only can be directed to [phone] at any time.[facility] Allergies No known active allergies Medications metFORMIN (GLUCOPHAGE) 1,000 mg tablet Take 1,000 mg by mouth 2 (two) times a day with meals. Active metoprolol tartrate (LOPRESSOR) 25 mg tablet Take 25 mg by mouth 2 (two) times a day. Active nitroglycerin (NITROSTAT) 0.[address] 0.3 mg under the tongue every 5 (five) minutes as needed for chest pain. Active rivaroxaban (XARELTO) 20 mg tablet Take 20 mg by mouth daily. Active Accu-Chek Guide test strips strips TEST TWICE DAILY NEEDED 11/02/2021 Active glipiZIDE (GLUCOTROL) 10 mg tablet Active Accu-Chek Fastclix Lancet Drum use for testing 11/01/2021 Active valsartan (DIOVAN) 160 mg tablet Take 160 mg by mouth daily. 06/14/2022 Active semaglutide (RYBELSUS) 14 mg tablet tablet Take 14 mg by mouth daily. 12/05/2022 Active atorvastatin (LIPITOR) 80 mg tablet Take 0.5 tablets (40 mg total) by mouth daily. 12/27/2022 Active atorvastatin (LIPITOR) 40 mg tablet [...] HZV (ZOSTAVAX) 08/10/2016 HepB Adult 07/05/2005 Influenza Split 07/22/2017 Influenza high dose QV(65 ye ars or older) (PF) 08/31/2021 Influenza, Injectable, Quadrivalent 07/13/2015 Influenza, Seasonal, Injectable 08/04/2014,09/23,09/07/2005 PCV13 05/30/2021 PPSV23 05/28/2019 RZV (SHINGRIX) 11/28/2020,09/01/2020 Td (Adult), adsorbed 09/01/2020 Tdap 08/03/2010 influenza trivalent high dos e (HD)(PF) 07/22/2017 influenza trivalent vaccine (6 months and older)(PF) 08/03/2010,07/29/2009 influenza vaccine QV(FLUBLOK ) (18 years or older) (PF) 08/15/2020,08/04/2019 influenza vaccine quad (FLUZONE/FLUARIX) (6 months and older)(PF) 10/24/2018,08/19/2017,07/05/2016,2012 Family History Medical History Relation Name Comments Asthma Brother Efrem Sleep apnea Father Santy Lung cancer Father's Brother 1 Bassam Coronary artery disease Father's Brother 2 [place]om[place] Dementia Father's Brother 3 Loyis Alcohol abuse Father's Brother 4 Partha Coronary artery disease Father's Sister 1 Martha Osteoporosis Father's Sister 2 Trish Thyroid disease Maternal Grandmother Liz Diabetes Mother Yadira Kidney disease Mother Yadira Sleep apnea Mother Yadira Coronary artery disease Paternal Grandfather Demetrius Clotting disorder Paternal Grandmother Laura Colon cancer Paternal Grandmother Laura Relation Name Status Comments Brother Efrem Father Arnold Father's Brother 1 Bassam Father's Brother 2 [...] 11/17/2021 How often do you attend chur or baptist services? Never 11/17/2021 Do you belong to any clubs o r organizations such as yarsani groups, unions, fraternal or athletic groups, or [...] and heating? Not hard at all 11/17/2021 [facility] Occupat ional Health - Occupational Stress [...] place to sleep or slept in a long term (including now)? No 11/17/2021 Nutrition Answer Date Recorded On average, how many serving s of [...] Sex Assigned at Male 11/17/2021 12:19 PM MEAT MARKET MANAGER Legal Sex Male 4:15 PM MEAT MARKET MANAGER Gender Identity Male 11/17/2021 12:19 PM MEAT MARKET MANAGER Sexual Orientation Straight 11/17/2021 12 :19 PM MEAT MARKET MANAGER Last Filed Vital Signs Vital Sign Reading Time Taken Comments Blood Pressure 168/81 12/27/2022 2:47 PM MEAT MARKET MANAGER Pulse 80 12/27/2022 2:47 PM MEAT MARKET MANAGER Temperature - - Respiratory Rate 16 10/19/2016 12:0 3 PM MEAT MARKET MANAGER Vital sign result from Clinical Notes. Oxygen Saturation - - Inhaled Oxygen Concentration - - Weight 95.8 kg (211 lb 5 oz) 12/27/2022 2:47 PM MEAT MARKET MANAGER Height 171.2 cm (5' 7.4) 12/27/2022 2: 47 PM MEAT MARKET MANAGER Body Mass Index 32.7 12/27/2022 2:47 PM MEAT MARKET MANAGER Plan of Treatment Health Maintenance Due Date Last Done Comments CT Colonography 1955 Cologuard 1955 Diabetic Office Visit with Foot Exam 1956 Dilated Eye Exam 1955 Hepatitis C Screening 1955 Urine Albumin 1955 Hepatitis B Vaccines (2 of 3 - Risk 3-dose series) 08/02/2005 07/05/2005 Colonoscopy 10/22/2016 10/22/2011 (Perf ormed elsewhere) Colorectal Cancer Surveillance 10/22/2016 Hemoglobin A1C 03/28/2023 12/26/2022, 10/22, 12/27/2017, Additional history exists Office Visit for Blood Pressure Check / Re-check 03/29/2023 12/27/2022 Depression Screening (Annual PHQ-2) 10/21/2023 Fall Risk Screen (Annual) 10/21/2023 Creatinine Level (Kidney Function Test) 12/27/2023 12/26/2022, 11/16/2021, 03/15/2016, Additional history exists Potassium Level 12/27/2023 12/26/2022, 10/22, 03/15/2016, Additional history exists Sodium Level 12/27/2023 12/26/2022, 10/22, 03/15/2016, Additional history exists Pneumococcal vaccine (65+ years) (3 of 3 - PPSV23 or PCV20) 05/28/2024 05/30/2021, 05/28/2019 COVID-19 Vaccine ( season) 2024 08/29/2023, 08/05/2022, 03/14/2022, Additional history exists Influenza Vaccine (#1) 2024 , 08/05/2022, 08/31/2021, Additional history exists Lipid (Cholesterol) Screening 12/27/2027 12/26/2022, 11/16/2021, 12/27/2017, Additional history exists DTaP,Tdap,and Td Vaccines (3 - Td or Tdap) 09/01/2030 09/01/2020, 08/03/2010 Zoster Vaccines Completed 11/28/2020, 08/21, 08/10/2016 IPV Vaccines Aged Out No longer eligi ble based on patient's age to complete this topic Medical Devices Implanted Type Area Gem Setter Device Identifier Shelf Expiration Date Model / Serial / Lot Premier 3.0 X 16 - [id number] Implanted:Qty: 1 on 03/14/2016 Cardiac Stent [employer] Description:Device Manufactu rer - [employer]. Device Status Text - [id number]. Procedures Procedure Name Priority Date/Time Associated Diagnosis Comments HEMOGLOBIN A1C, B Routine 12/26/2022 8:4 0 AM MEAT MARKET MANAGER Hyperlipidemia Diabetes Mellitus Type 2 (HCC) LIPID PANEL, S Routine 12/26/2022 8:40 AM MEAT MARKET MANAGER Hyperlipidemia Diabetes Mellitus Type 2 (HCC) SODIUM, S/P Routine 12/26/2022 8:40 AM MEAT MARKET MANAGER Hyperlipidemia Diabetes Mellitus Type 2 (HCC) POTASSIUM, S/P Routine 12/26/2022 8:40 AM MEAT MARKET MANAGER Hyperlipidemia Diabetes Mellitus Type 2 (HCC) CREATININE WITH EGFR, S/P Routine 12/26/2022 8:40 AM MEAT MARKET MANAGER Hyperlipidemia Diabetes Mellitus Type 2 (HCC) from Last 3 Months or Most Recently Relevant to Health Maintenance Results * (ABNORMAL) Lipid Panel (12/26/2022 8:40 AM MEAT MARKET MANAGER) Triglycerides 61 mg/dL 12/26/2022 9:45 AM MEAT MARKET MANAGER DTL Comment: ----REFERENCE VALUE---- Normal: <150 mg/dL Borderline High: 150-199 mg/dL High: 200-499 mg/dL Very High: > or =500 mg/dL Cholesterol, Total 78 mg/dL 2022 9:45 AM MEAT MARKET MANAGER DTL Comment: ----REFERENCE VALUE---- Desirable: < 200 mg/dL Borderline High: 200 - 239 mg/dL High: > or = 240 mg/dL Cholesterol, LDL, Calculated 36 mg/dL 12/26/2022 9:45 AM MEAT MARKET MANAGER DTL Comment: ----REFERENCE VALUE---- Desirable: <100 mg/dL Above Desirable: 100-129 mg/dL Borderline High: 130-159 mg/dL High: 160-189 mg/dL Very High: >=190 mg/dL ----ADDITIONAL INFORMATION---- LDL cholesterol calculated using the Shahid/NIH equation. Cholesterol, HDL, S 28(L) >=40 mg/dL 12/26/2022 9:45 AM MEAT MARKET MANAGER DTL Cholesterol, Non-HDL, Calculated 50 mg/dL 12/26/2022 9:45 AM MEAT MARKET MANAGER DTL Comment: ----REFERENCE VALUE---- Desirable: <130 mg/dL Above Desirable: 130-159 mg/dL Borderline High: 160-189 mg/dL High: 190-219 mg/dL Very High: > or =220 mg/dL Fasting (8 HR or more) 17:30 12/26/2022 9:22 AM MEAT MARKET MANAGER DTL Blood (Blood, Venous) 12/26/2022 8:40 AM MEAT MARKET MANAGER 12/26/2022 9:22 AM MEAT MARKET MANAGER Tone Lawson M.D. LAB BLOOD ADD-ON Final Resu lt [facility] [address] [place], [place] [id number] [place] [address] [address] [place] [address] * Sodium (12/26/2022 8:40 AM MEAT MARKET MANAGER) Sodium, S 143 135 - 145 mmol/L 12/26/2022 9:45 AM MEAT MARKET MANAGER DTL Blood (Blood, Venous) 12/26/2022 8:40 AM MEAT MARKET MANAGER 12/26/2022 9:22 AM MEAT MARKET MANAGER us Tone Lawson M.D. LAB BLOOD ADD-ON Final Resu lt Performing Organization Address City/[facility]/ZIP Co de Phone Number [facility] [address] [place], [place] [address] [address] [place] [address] * Potassium (12/26/2022 8:40 AM MEAT MARKET MANAGER) Potassium, S 4.5 3.6 - 5.2 mmol/L 12/26/2022 9:45 AM MEAT MARKET MANAGER DTL Blood (Blood, Venous) 12/26/2022 8:40 AM MEAT MARKET MANAGER 12/26/2022 9:22 AM MEAT MARKET MANAGER us Tone Lawson M.D. LAB BLOOD ADD-ON Final Resu lt Performing Organization Address City/[facility]/ZIP Co de Phone Number [facility] [address] [place], [place] [id number] [place] [address] [address] [place] [address] * (ABNORMAL) Hemoglobin A1c (12/26/2022 8:40 AM MEAT MARKET MANAGER) Hemoglobin A1c, B 8.3(H) 4.0 - 5.6 % 12/26/2022 10:42 AM MEAT MARKET MANAGER DT Comment: Hemoglobin A1c values greater than or equal to 6.5 percent are diagnostic for diabetes mellitus. Diagnosis should be confirmed by repeat testing. In diabetic patients, HbA1c goals should be discussed with healthcare provider. Blood (Blood, Venous) 12/26/2022 8:40 AM MEAT MARKET MANAGER 12/26/2022 9:04 AM MEAT MARKET MANAGER us Tone Lawson M.D. LAB BLOOD ADD-ON Final Resu lt Performing Organization Address City/[facility]/ZIP Co de Phone Number [facility] [address] [place] [address], [place] DTL [facility] [address] [place] [address] * Creatinine with Estimated GFR (12/26/2022 8:40 AM MEAT MARKET MANAGER) Creatinine 0.88 0.74 - 1.35 mg/dL 12/26/2022 9:45 AM MEAT MARKET MANAGER DTL Estimated GFR (eGFR) >90 >=60 mL/min/BSA 12/26/2022 9:45 AM MEAT MARKET MANAGER DTL Comment: Estimated GFR calculated using the 2020 CKD_EPI creatinine equation. Blood (Blood, Venous) 12/26/2022 8:40 AM MEAT MARKET MANAGER 12/26/2022 9:22 AM MEAT MARKET MANAGER us Tone Lawson M.D. LAB BLOOD ADD-ON Final Resu lt [facility] [address] [place] [address], [place] [facility] [address] [place] [address] from Last 3 Months or Most Recently Relevant to Health Maintenance Insurance MEDICARE [employer]
--- OUTSIDE RECORDS SUMMARY | 2024-09-10 08:19 | XMS_ITS | Referral Summary ---
Author Organization [facility] Address [address] [place] [address] Care Team Providers Care Energy Conservation Specialist Name Role Phone Unavailable Primary Care Provider Unavailabl e Source Comments Patient records contain information from all sites at [facility]. For routine questions regarding patient records, call [phone] during business hours, M-F 8:00 AM - 5:00 PM Central Time. Record requests for emergency care only can be directed to [phone] at any time.[facility] Allergies No known active allergies Medications metFORMIN [...] often do you attend chur ch or jainism services? Never 11/17/2021 Do you belong to [...] and heating? Not hard at all 11/17/2021 [facility] Health - Occupational Stress Questionnaire Answer Date [...] place to sleep or slept in a custodial (including now)? No 11/17/2021 Nutrition Answer Date [...] Sex Assigned at Male 11/17/2021 12:19 PM ASSEMBLER PRODUCT Legal Sex Male 4:15 PM ASSEMBLER PRODUCT Gender Identity Male 11/17/2021 12:19 PM ASSEMBLER PRODUCT Sexual Orientation Straight 11/17/2021 12 :19 PM ASSEMBLER PRODUCT Last Filed Vital Signs Vital Sign Reading Time Taken Comments Blood Pressure 168/81 12/27/2022 2:47 PM ASSEMBLER PRODUCT Pulse 80 12/27/2022 2:47 PM ASSEMBLER PRODUCT Temperature - - Respiratory Rate 16 10/19/2016 12:0 3 PM ASSEMBLER PRODUCT Vital sign result from Clinical Notes. Oxygen Saturation - - Inhaled Oxygen Concentration - - Weight 95.8 kg (211 lb 5 oz) 12/27/2022 2:47 PM ASSEMBLER PRODUCT Height 171.2 cm (5' 7.4) 12/27/2022 2: 47 PM ASSEMBLER PRODUCT Body Mass Index 32.7 12/27/2022 2:47 PM ASSEMBLER PRODUCT Plan of Treatment Not on file Medical Devices Implanted Type Area Automation Machine Operator Device Identifier Shelf Expiration Date Model / Serial / Lot Premier 3.0 X 16 - [id number] Implanted:Qty: 1 on 03/14/2016 Cardiac Stent [employer] Description:Device Manufactu rer - [employer]. Device Status Text - [id number]. Procedures Procedure Name Priority Date/Time Associated Diagnosis Comments HEMOGLOBIN A1C, B Routine 12/26/2022 8:4 0 AM ASSEMBLER PRODUCT Hyperlipidemia Diabetes Mellitus Type 2 (HCC) LIPID PANEL, S Routine 12/26/2022 8:40 AM ASSEMBLER PRODUCT Hyperlipidemia Diabetes Mellitus Type 2 (HCC) SODIUM, S/P Routine 12/26/2022 8:40 AM ASSEMBLER PRODUCT Hyperlipidemia Diabetes Mellitus Type 2 (HCC) POTASSIUM, S/P Routine 12/26/2022 8:40 AM ASSEMBLER PRODUCT Hyperlipidemia Diabetes Mellitus Type 2 (HCC) CREATININE WITH EGFR, S/P Routine 12/26/2022 8:40 AM ASSEMBLER PRODUCT Hyperlipidemia Diabetes Mellitus Type 2 (HCC) from Last 3 Months or Most Recently Relevant to Health Maintenance Results * (ABNORMAL) Lipid Panel (12/26/2022 8:40 AM ASSEMBLER PRODUCT) Pathologist [facility] Triglycerides 61 mg/dL 12/26/2022 9:45 AM ASSEMBLER PRODUCT DTL Comment: ----REFERENCE VALUE---- Normal: <150 mg/dL Borderline High: 150-199 mg/dL High: 200-499 mg/dL Very High: > or =500 mg/dL Cholesterol, Total 78 mg/dL 2022 9:45 AM ASSEMBLER PRODUCT DTL Comment: ----REFERENCE VALUE---- Desirable: < 200 mg/dL Borderline High: 200 - 239 mg/dL High: > or = 240 mg/dL Cholesterol, LDL, Calculated 36 mg/dL 12/26/2022 9:45 AM ASSEMBLER PRODUCT DTL Comment: ----REFERENCE VALUE---- Desirable: <100 mg/dL Above Desirable: 100-129 mg/dL Borderline High: 130-159 mg/dL High: 160-189 mg/dL Very High: >=190 mg/dL ----ADDITIONAL INFORMATION---- LDL cholesterol calculated using the Shahid/NIH equation. Cholesterol, HDL, S 28(L) >=40 mg/dL 12/26/2022 9:45 AM ASSEMBLER PRODUCT DTL Cholesterol, Non-HDL, Calculated 50 mg/dL 12/26/2022 9:45 AM ASSEMBLER PRODUCT DTL Comment: ----REFERENCE VALUE---- Desirable: <130 mg/dL Above Desirable: 130-159 mg/dL Borderline High: 160-189 mg/dL High: 190-219 mg/dL Very High: > or =220 mg/dL Fasting (8 HR or more) 17:30 12/26/2022 9:22 AM ASSEMBLER PRODUCT DTL Blood (Blood, Venous) 12/26/2022 8:40 AM ASSEMBLER PRODUCT 12/26/2022 9:22 AM ASSEMBLER PRODUCT us Tone Lawson M.D. LAB BLOOD ADD-ON Final Resu lt Performing Organization Address City/[facility]/ZIP Co de Phone Number [facility] [address] [place] [address] * Sodium (12/26/2022 8:40 AM ASSEMBLER PRODUCT) Sodium, S 143 135 - 145 mmol/L 12/26/2022 9:45 AM ASSEMBLER PRODUCT DTL Blood (Blood, Venous) 12/26/2022 8:40 AM ASSEMBLER PRODUCT 12/26/2022 9:22 AM ASSEMBLER PRODUCT us Tone Lawson M.D. LAB BLOOD ADD-ON Final Resu lt Performing Organization Address City/[facility]/ZIP Co de Phone Number [facility] [address] DTL [facility] [address] [place] [address] * Potassium (12/26/2022 8:40 AM ASSEMBLER PRODUCT) Potassium, S 4.5 3.6 - 5.2 mmol/L 12/26/2022 9:45 AM ASSEMBLER PRODUCT DTL Blood (Blood, Venous) 12/26/2022 8:40 AM ASSEMBLER PRODUCT 12/26/2022 9:22 AM ASSEMBLER PRODUCT Tone Lawson M.D. LAB BLOOD ADD-ON Final Resu lt [facility] [address] [place] [address], [facility] DTL [facility] [address] [place] [address] * (ABNORMAL) Hemoglobin A1c (12/26/2022 8:40 AM ASSEMBLER PRODUCT) Hemoglobin A1c, B 8.3(H) 4.0 - 5.6 % 12/26/2022 10:42 AM ASSEMBLER PRODUCT DTL Comment: Hemoglobin A1c values greater than or equal to 6.5 percent are diagnostic for diabetes mellitus. Diagnosis should be confirmed by repeat testing. In diabetic patients, HbA1c goals should be discussed with healthcare provider. Blood (Blood, Venous) 12/26/2022 8:40 AM ASSEMBLER PRODUCT 12/26/2022 9:04 AM ASSEMBLER PRODUCT us Tone Lawson M.D. LAB BLOOD ADD-ON Final Resu lt [facility] [address] [place] [address], [facility] DTL [facility] [address] [place] [address] * Creatinine with Estimated GFR (12/26/2022 8:40 AM ASSEMBLER PRODUCT) Creatinine 0.88 0.74 - 1.35 mg/dL 12/26/2022 9:45 AM ASSEMBLER PRODUCT DTL Estimated GFR (eGFR) >90 >=60 mL/min/BSA 12/26/2022 9:45 AM ASSEMBLER PRODUCT DTL Comment: Estimated GFR calculated using the 2020 CKD_EPI creatinine equation. Blood (Blood, Venous) 12/26/2022 8:40 AM ASSEMBLER PRODUCT 12/26/2022 9:22 AM ASSEMBLER PRODUCT Tone Lawson M.D. LAB BLOOD ADD-ON Final Resu lt [facility] [address] [place] [address], [place] DTL [facility] [address] [place] [address] from Last 3 Months or Most Recently Relevant to Health Maintenance Insurance MEDICARE [facility]
--- OUTSIDE RECORDS SUMMARY | 2024-09-10 08:20 | XMS_ITS | Clinical Summary ---
Author Organization [facility] Address [place], [place] [address] Care Team Providers Care Information Assurance Analyst Name Role Phone Indu Dahl MD Primary Care Provider [phone] Allergies No known active allergies Medications Medication Sig Dispensed Refills Start Date End Date Status atorvastatin (LIPITOR) 80 mg tablet TK 1 T PO HS 0 10/29/2018 Active ACCU-CHEK GUIDE strip 01/11/2019 Act avani metFORMIN (GLUCOPHAGE) 1,000 mg tablet Twice Daily With Meals 02/13/2018 Active metoprolol tartrate (LOPRESSOR) 25 mg tablet Twice A Day 10/29/2018 Active nitroglycerin (NITROSTAT) 0.4 mg sublingual tablet Every 5 Minutes as needed 11/03/2018 Active XARELTO 20 mg tablet TK 1 T PO D WITH THE MARY MEAL 3 11/07/2018 Active ondansetron (ZOFRAN ODT) 4 mg disintegrating tabletIndications:Nause a Place 1 Tablet (4 mg) on the tongue every 6 hours if needed for Nausea/Vomiting . 10 Tablet 11/15/2023 Active Active Problems Problem Noted Date Diagnosed [...] Sign Reading Time Taken Comments Blood Pressure 154/82 11/15/2023 5:00 PM SALES TRAINING REPRESENTATIVE Pulse 102 11/15/2023 4:51 PM SALES TRAINING REPRESENTATIVE Temperature 36.4 C (97.5 F) 11/15/2023 3:02 PM SALES TRAINING REPRESENTATIVE Respiratory Rate 18 11/15/2023 5:00 PM SALES TRAINING REPRESENTATIVE Oxygen Saturation 97% 11/15/2023 5:00 PM SALES TRAINING REPRESENTATIVE Inhaled Oxygen Concentration - - Weight 98.9 kg (218 lb) 11/15/2023 3:02 PM SALES TRAINING REPRESENTATIVE Height 167.6 cm (5' 6) 11/15/2023 3:02 PM SALES TRAINING REPRESENTATIVE Body Mass Index 35.19 11/15/2023 3:02 PM SALES TRAINING REPRESENTATIVE Plan of Treatment Health Maintenance Due Date Last Done Comments Tdap 1967 Depression screening for age 12+ 1968 BMI (ht and wt on same day) for age 18+ 1974 Hepatitis C screening for ag e 18-79 1974 Tetanus booster 1976 Colonoscopy through age 75 2001 Zoster (shingles) series for age 50+ (1 of 2) 2006 Lipids for age 45-75 09/30/2011 09/30/2006 Pneumococcal series for age 65+ (1 of 1 - PCV) 2021 COVID-19 vaccine series ( season) 2024 08/29/2023, 09/12/2021, 02/03/2021, Additional history exists Influenza for age 65+ 06/21/2024 Procedures Procedure Name Priority Date/Time Associated Diagnosis Comments LIPID PANEL Timed 09/30/2006 8:33 AM SALES TRAINING REPRESENTATIVE from Last 3 Months or Most Recently Relevant to Health Maintenance Results * LIPID PANEL (09/30/2006 8:33 AM SALES TRAINING REPRESENTATIVE) CHOLESTEROL,TOTAL 155 110 - 199 mg/dL [facility] TRIGLYCERIDES 52 <150 mg/dL [facility] HDL CHOLESTEROL 45 >40 mg/dL [facility] CHOL/HDL RATIO 3.44 <4.51 [facility] LDL CHOLESTEROL 100 <131 mg/dL [facility] PATIENT STATUS Fasting [facility] 09/30/2006 8:33 AM SALES TRAINING REPRESENTATIVE 09/30/2006 8:33 AM SALES TRAINING REPRESENTATIVE Mihir Hernandez MD CHEMISTRY [facility] [address] [place] [address] from Last 3 Months or Most Recently Relevant to Health Maintenance Care Teams Information Assurance Analyst Relationship Specialty Start Date End Date Indu Dahl MD [address] [place] [address] PCP - General Internal Medicine 01/12/19
--- OUTSIDE RECORDS SUMMARY | 2024-09-10 08:20 | XMS_ITS ---
Author Organization [facility] Address [address] [place] [address] Care Team Providers Care Certified Financial Planner Name Role Phone Unavailable Unavailable Unavailable Surgery Details Not on file Complications Check Surgery Details section. Procedure Estimated Blood Loss Check Surgery Details section. Procedure Findings Check Surgery Details section. Procedure Specimens Taken Check Surgery Details section.
== END 2024-09-10 08:16 | disposition home or self-care (01) ==
PROVIDERS: PCP Internal Medicine; Visit Provider Internal Medicine
DX: E78.5 Hyperlipidemia, unspecified (principal); E11.9 Type 2 diabetes mellitus without complications; E66.9 Obesity, unspecified; Z12.5 Encounter for screening for malignant neoplasm of prostate
CPT/HCPCS: 80053; 80061; 82043; 82570; G0103

== ENCOUNTER 2025-09-09 07:32 | Outpatient (CLI) | payer MEDICARE, SELFPAY | END 2025-09-09 07:33 | disposition home or self-care (01) | LOC: NFLDREF 09-12 17:25 | PROVIDERS: PCP Internal Medicine; Referring Provider Internal Medicine; Visit Provider Internal Medicine | DX: E11.9 Type 2 diabetes mellitus without complications (principal); Z12.5 Encounter for screening for malignant neoplasm of prostate | CPT/HCPCS: 80053; 80061; 82043; 82570; G0103 ==